=== PATIENT | female | born 1975 | race Caucasian/White ===

== ENCOUNTER 2018-07-12 16:33 | Observation (INO) ==
[2018-07-12] MEDS ORDERED: Ipratropium/Albuterol Neb 3 ML IH ONE (16:35)
[2018-07-12] MEDS ORDERED: methylPREDNISolone 125 MG/2 ML VIAL IVP ONE (16:35)
[2018-07-12 17:02] LABS: Basophils % 0.5 %; Eosinophils # 0.2 K/mcL (0.0-0.6); Hematocrit 38.4 % (35.3-44.9); Hemoglobin 11.8 g/dL (11.5-15.4); Immature Granulocytes % 1.2 % (0-4); Lymphocytes # 2.1 K/mcL (0.6-4.6); Lymphocytes % 27.7 %; Mean Corpuscular HGB Conc 30.7 g/dL (31.6-35.5); Mean Corpuscular Hemoglobin 29.2 pg (28.0-33.3); Mean Platelet Volume 10.3 fL (9.4-12.4); Monocytes # 0.7 K/mcL (0.0-1.3); Monocytes % 9.1 %; Neutrophils # 4.4 K/mcL (1.6-8.9); Platelet Count 182 K/mcL (140-400); Red Blood Count 4.04 M/mcL (3.82-4.97); Red Cell Distribution Width 14.8 % (11.5-14.5); Segmented Neutrophils % 59.5 %
[2018-07-12 17:23] LABS: BUN/Creatinine Ratio 7 (6-26); Blood Urea Nitrogen 6 mg/dL (6-20); Carbon Dioxide 28 mEq/L (23-29); Chloride 102 mEq/L (98-107); Glucose 100 mg/dL (70-105); Osmolality,Calculated 288 (280-300); Potassium 3.2 mEq/L (3.5-5.1); Sodium 140 mEq/L (136-145); eGFR For Non-African Americans > 60 (> 60)
[2018-07-12 17:24] LABS: Troponin I < 0.03 ng/mL (< 0.04)
--- NOTE | 2018-07-12 17:33 | Emergency Department Note ---
Disposition Clinical Impression: COPD exacerbation Pneumonia Qualifiers: Pneumonia type: due to unspecified organism Laterality: unspecified laterality Lung location: unspecified part of lung Qualified Code(s): J18.9 - Pneumonia, unspecified organism Disposition: Admitted As Inpatient Condition: Fair Referrals: NONE,PCP [Primary Care Provider] - Forms: ED Satisfaction Letter Time of Disposition: 18:08 General Adult HPI - General Chief complaint: ED Shortness of Breath/Dyspnea Stated complaint: JAYNE Time Seen by Provider: 07/12/18 16:34 Source: patient Mode of arrival: ambulatory Limitations: no limitations Nursing Notes Reviewed: Yes Vital Signs Reviewed: Yes - History of Present Illness HPI Narrative: Patient is a 42-year-old female that presents emergency Department with increased shortness of breath. Patient states that this is been ongoing for the past 24-48 hours. Patient states that is progressively getting worse. Patient states that she has had a cough with production of greenish sputum patient denies any fevers or chills. Patient states that she does not think that she has a history of COPD or congestive heart failure. Patient states that she does have chronic swelling in bilateral lower extremities this is actually improved from her baseline. Patient denies any chest pain. Patient states that she just felt like she was having a more difficult time getting air. Pain Scale: 0 - Related Data Previous Rx's Medication Instructions Recorded predniSONE [PredniSONE] 40 mg PO BIDWM 3 Days #6 tablet 09/15/17 Albuterol Sulfate [Albuterol 1 puff IH Q4HR #1 inhaler 03/09/18 Inhaler] predniSONE [PredniSONE] 60 mg PO DAILY #15 tablet 03/09/18 Ipratropium/Albuterol Neb [Duoneb] 3 ml IH Q6HR PRN #30 vial.neb 03/10/18 Lidocaine Patch [Lidoderm 5% patch] 1 each TP DAILY PRN #10 adh..patch 03/10/18 Albuterol Sulfate [Albuterol 1 puff IH Q4HR #1 inhaler 06/15/18 Inhaler] methylPREDNISolone [Medrol] 1 each PO DAILY #1 pack 06/15/18 Allergies Allergy/AdvReac Type Severity Reaction Status Date / Time No Known Allergies Allergy Verified 09/14/17 23:19 All systems ED: reviewed and negative except as stated. Constitutional: Denies: fever Cardiovascular: Denies: chest pain Respiratory: Reports: cough, dyspnea, sputum production Gastrointestinal: Denies: abdominal pain, nausea, vomiting Past Medical History - Past Medical History Medical history: Reports: no medical history Surgical history: Reports: non-contributory Psychiatric history: Reports: no psych history - Social History Smoking Status: Current every day smoker Smokeless Tobacco Status: No Alcohol use: Reports: none Drug use: Reports: opiates, other Physical Exam - General Limitations: no limitations General appearance: alert, in no apparent distress - Head Head exam: atraumatic, normocephalic - Eye Eye exam: Present: normal appearance, EOMI - Neck Neck exam: Present: normal inspection, full ROM, trachea midline - Respiratory Respiratory exam: Present: wheezes (Scattered wheezes ). Absent: respiratory distress - Cardiovascular Cardiovascular exam: Present: regular rate, normal rhythm, normal heart sounds, +S1, +S2 - Abdominal Exam Abdominal exam: Present: soft, Non-Tender, normal bowel sounds - Neurological Exam Neurological exam: Present: alert, oriented X3 - Psychiatric Psychiatric exam: Present: normal affect, normal mood - Skin Skin exam: Present: warm, dry, intact Course Vital Signs Temperature 99.3 F 07/12/18 16:39 Pulse Rate 107 07/12/18 16:39 Respiratory Rate 15 07/12/18 16:39 Blood Pressure 126/65 07/12/18 16:39 O2 Sat by Pulse Oximetry 100 07/12/18 16:39 Temperature 99.3 F 07/12/18 16:58 Pulse Rate 103 07/12/18 16:58 Respiratory Rate 22 07/12/18 16:58 Blood Pressure 105/52 07/12/18 16:58 O2 Sat by Pulse Oximetry 100 07/12/18 16:58 Oxygen Delivery Oxygen Delivery Aerosol Mask Medical Decision Making - [facility] Narrative Medical decision making narrative: Due the patient's into the emergency department with reports of shortness of breath basic laboratory testing, chest x-ray and EKG were obtained. The patient's EKG did not show any acute ischemic changes at this time. Patient did have some mild improvement with breathing treatments. Chest x-ray did show possible evidence of pneumonia and the patient has been coughing up a greenish sputum. We will provide the patient with IV ceftriaxone and azithromycin here in the emergency department. Patient is having desaturations into the upper 80s. Based on the patient having increased work of breathing and possible pneumonia the patient will require admission to the hospital. I called and spoke the admitting hospitalist Dr. Orellana and he has accepted the patient to their service. Patient be admitted to the hospital this time for further evaluation and management. - Medical Records Medical records reviewed: Yes I reviewed the patient's medical records. - Lab Data Lab results reviewed: Yes I reviewed the patient's lab results. Result diagrams: 07/12/18 16:49 07/12/18 16:49 Lab Results 07/12/18 07/12/18 07/12/18 Range/Units 16:49 16:49 16:49 WBC 7.5 (4.3-11.1) K/mcL RBC 4.04 (3.82-4.97) M/mcL Hgb 11.8 (11.5-15.4) g/dL Hct 38.4 (35.3-44.9) % MCV 95.0 (83.0-100.0) fL MCH 29.2 (28.0-33.3) pg MCHC 30.7 L (31.6-35.5) g/dL RDW 14.8 H (11.5-14.5) % Plt Count 182 (140-400) K/mcL MPV 10.3 (9.4-12.4) fL Immature Gran % 1.2 (0-4) % Seg Neutrophils % 59.5 % Lymphocytes % 27.7 % Monocytes % 9.1 % Eosinophils % 2.0 % Basophils % 0.5 % Neutrophils # 4.4 (1.6-8.9) K/mcL Lymphocytes # 2.1 (0.6-4.6) K/mcL Monocytes # 0.7 (0.0-1.3) K/mcL Eosinophils # 0.2 (0.0-0.6) K/mcL Basophils # 0.0 (0.0-0.2) K/mcL Sodium 140 (136-145) mEq/L Potassium 3.2 L (3.5-5.1) mEq/L Chloride 102 (98-107) mEq/L Carbon Dioxide 28 (23-29) mEq/L BUN 6 (6-20) mg/dL Creatinine 0.85 (0.60-1.20) mg/dL Est GFR ( Amer) > 60 (> 60) Est GFR (Non-Af Amer) > 60 (> 60) BUN/Creatinine Ratio 7 (6-26) Glucose 100 (70-105) mg/dL Calculated Osmolality 288 (280-300) Lactic Acid 0.9 (0.5-2.2) mmol/L Calcium 9.0 (8.6-10.3) mg/dL Troponin I < 0.03 (< 0.04) ng/mL B-Natriuretic Peptide (Less than 100) pg/mL 07/12/18 Range/Units 16:49 WBC (4.3-11.1) K/mcL RBC (3.82-4.97) M/mcL Hgb (11.5-15.4) g/dL Hct (35.3-44.9) % MCV (83.0-100.0) fL MCH (28.0-33.3) pg MCHC (31.6-35.5) g/dL RDW (11.5-14.5) % Plt Count (140-400) K/mcL MPV (9.4-12.4) fL Immature Gran % (0-4) % Seg Neutrophils % % Lymphocytes % % Monocytes % % Eosinophils % % Basophils % % Neutrophils # (1.6-8.9) K/mcL Lymphocytes # (0.6-4.6) K/mcL Monocytes # (0.0-1.3) K/mcL Eosinophils # (0.0-0.6) K/mcL Basophils # (0.0-0.2) K/mcL Sodium (136-145) mEq/L Potassium (3.5-5.1) mEq/L Chloride (98-107) mEq/L Carbon Dioxide (23-29) mEq/L BUN (6-20) mg/dL Creatinine (0.60-1.20) mg/dL Est GFR ( Amer) (> 60) Est GFR (Non-Af Amer) (> 60) BUN/Creatinine Ratio (6-26) Glucose (70-105) mg/dL Calculated Osmolality (280-300) Lactic Acid (0.5-2.2) mmol/L Calcium (8.6-10.3) mg/dL Troponin I (< 0.04) ng/mL B-Natriuretic Peptide 29 (Less than 100) pg/mL - Radiology Data Radiology results reviewed: Yes I reviewed the patient's radiology results. Chest X-Ray 07/12/18 16:35 IMPRESSION: Patchy opacity in the right lung base which may related to the low lung volumes and atelectasis. Pneumonia cannot be excluded. Consider dedicated two view chest x-ray if the patient is able. D/ / Kait Corcoran MD / Kait Corcoran MD Interpreting Provider: Kait Corcoran MD - EKG Data EKG #1 EKG attestation: Yes I reviewed and interpreted this EKG. EKG results narrative: Patient's EKG shows a sinus tachycardia at a rate of 190 bpm, HI interval 146, qrs duration 97, QTc of 496. There is no evidence of STEMI on EKG.
[2018-07-12] MEDS ORDERED: Azithromycin 500 MG in D5% in Water 250 ML IVPB ONE (17:41)
[2018-07-12] MEDS ORDERED: cefTRIAXone 1,000 MG in Water for inj. (sterile) 20 ML 10 ML IVP ONE (17:41)
--- NOTE | 2018-07-12 17:58 | Emergency Department Note ---
Disposition Clinical Impression: COPD exacerbation Pneumonia Qualifiers: Pneumonia type: due to unspecified organism Laterality: unspecified laterality Lung location: unspecified part of lung Qualified Code(s): J18.9 - Pneumonia, unspecified organism Disposition: Admitted As Inpatient Forms: ED Satisfaction Letter General Adult HPI - General Chief complaint: ED Shortness of Breath/Dyspnea Stated complaint: JAYNE Time Seen by Provider: 07/12/18 16:34 Source: patient Mode of arrival: ambulatory Limitations: no limitations - History of Present Illness Pain Scale: 0 - Related Data Previous Rx's Medication Instructions Recorded predniSONE [PredniSONE] 40 mg PO BIDWM 3 Days #6 tablet 09/15/17 Albuterol Sulfate [Albuterol 1 puff IH Q4HR #1 inhaler 03/09/18 Inhaler] predniSONE [PredniSONE] 60 mg PO DAILY #15 tablet 03/09/18 Ipratropium/Albuterol Neb [Duoneb] 3 ml IH Q6HR PRN #30 vial.neb 03/10/18 Lidocaine Patch [Lidoderm 5% patch] 1 each TP DAILY PRN #10 adh..patch 03/10/18 Albuterol Sulfate [Albuterol 1 puff IH Q4HR #1 inhaler 06/15/18 Inhaler] methylPREDNISolone [Medrol] 1 each PO DAILY #1 pack 06/15/18 Allergies Allergy/AdvReac Type Severity Reaction Status Date / Time No Known Allergies Allergy Verified 09/14/17 23:19 Constitutional: Denies: fever Cardiovascular: Denies: chest pain Respiratory: Reports: cough, dyspnea, sputum production Gastrointestinal: Denies: abdominal pain, nausea, vomiting Past Medical History - Past Medical History Medical history: Reports: no medical history Surgical history: Reports: non-contributory Psychiatric history: Reports: no psych history - Social History Smoking Status: Current every day smoker Smokeless Tobacco Status: No Alcohol use: Reports: none Drug use: Reports: opiates, other Physical Exam - General Limitations: no limitations General appearance: alert, in no apparent distress Course Vital Signs Temperature 99.3 F 07/12/18 16:39 Pulse Rate 107 07/12/18 16:39 Respiratory Rate 15 07/12/18 16:39 Blood Pressure 126/65 07/12/18 16:39 O2 Sat by Pulse Oximetry 100 07/12/18 16:39 Temperature 99.3 F 07/12/18 16:58 Pulse Rate 103 07/12/18 16:58 Respiratory Rate 22 07/12/18 16:58 Blood Pressure 105/52 07/12/18 16:58 O2 Sat by Pulse Oximetry 100 07/12/18 16:58 Oxygen Delivery Oxygen Delivery Aerosol Mask Medical Decision Making - Lab Data Result diagrams: 07/12/18 16:49 07/12/18 16:49 Lab Results 07/12/18 07/12/18 07/12/18 Range/Units 16:49 16:49 16:49 WBC 7.5 (4.3-11.1) K/mcL RBC 4.04 (3.82-4.97) M/mcL Hgb 11.8 (11.5-15.4) g/dL Hct 38.4 (35.3-44.9) % MCV 95.0 (83.0-100.0) fL MCH 29.2 (28.0-33.3) pg MCHC 30.7 L (31.6-35.5) g/dL RDW 14.8 H (11.5-14.5) % Plt Count 182 (140-400) K/mcL MPV 10.3 (9.4-12.4) fL Immature Gran % 1.2 (0-4) % Seg Neutrophils % 59.5 % Lymphocytes % 27.7 % Monocytes % 9.1 % Eosinophils % 2.0 % Basophils % 0.5 % Neutrophils # 4.4 (1.6-8.9) K/mcL Lymphocytes # 2.1 (0.6-4.6) K/mcL Monocytes # 0.7 (0.0-1.3) K/mcL Eosinophils # 0.2 (0.0-0.6) K/mcL Basophils # 0.0 (0.0-0.2) K/mcL Sodium 140 (136-145) mEq/L Potassium 3.2 L (3.5-5.1) mEq/L Chloride 102 (98-107) mEq/L Carbon Dioxide 28 (23-29) mEq/L BUN 6 (6-20) mg/dL Creatinine 0.85 (0.60-1.20) mg/dL Est GFR ( Amer) > 60 (> 60) Est GFR (Non-Af Amer) > 60 (> 60) BUN/Creatinine Ratio 7 (6-26) Glucose 100 (70-105) mg/dL Calculated Osmolality 288 (280-300) Lactic Acid 0.9 (0.5-2.2) mmol/L Calcium 9.0 (8.6-10.3) mg/dL Troponin I < 0.03 (< 0.04) ng/mL B-Natriuretic Peptide (Less than 100) pg/mL 07/12/18 Range/Units 16:49 WBC (4.3-11.1) K/mcL RBC (3.82-4.97) M/mcL Hgb (11.5-15.4) g/dL Hct (35.3-44.9) % MCV (83.0-100.0) fL MCH (28.0-33.3) pg MCHC (31.6-35.5) g/dL RDW (11.5-14.5) % Plt Count (140-400) K/mcL MPV (9.4-12.4) fL Immature Gran % (0-4) % Seg Neutrophils % % Lymphocytes % % Monocytes % % Eosinophils % % Basophils % % Neutrophils # (1.6-8.9) K/mcL Lymphocytes # (0.6-4.6) K/mcL Monocytes # (0.0-1.3) K/mcL Eosinophils # (0.0-0.6) K/mcL Basophils # (0.0-0.2) K/mcL Sodium (136-145) mEq/L Potassium (3.5-5.1) mEq/L Chloride (98-107) mEq/L Carbon Dioxide (23-29) mEq/L BUN (6-20) mg/dL Creatinine (0.60-1.20) mg/dL Est GFR ( Amer) (> 60) Est GFR (Non-Af Amer) (> 60) BUN/Creatinine Ratio (6-26) Glucose (70-105) mg/dL Calculated Osmolality (280-300) Lactic Acid (0.5-2.2) mmol/L Calcium (8.6-10.3) mg/dL Troponin I (< 0.04) ng/mL B-Natriuretic Peptide 29 (Less than 100) pg/mL Attestation Statement - Attestation Attestation: I examined this patient and my medical decision-making was reviewed with the Resident Physician. I agree with the documented findings, disposition and treatment plan as described except to the extent set forth below. 42 year old female presents to the ED with complaints of JAYNE ad the XR has possible pnuemoina. She ambulated without dropping her oxygen level below 94% and does not wear oxygen at home. We will offer patinet adimssion if she needs more pulmonar toilet.
[2018-07-12] MEDS ORDERED: 0.9 % Sodium Chloride 1,000 ML IVC ONE (18:04)
--- NOTE | 2018-07-12 18:29 | Internal Med History&Physical ---
Date of Encounter: 07/12/18 Time of Encounter: 18:29 Internal Medicine - H&P: HPI History of present illness: Ms. Crandall is a 42 year old female with history of tobacco abuse and suspected asthma or COPD presented for SOB that started last night. Patient denies fevers/chills. She is having cough with green sputum. She was recently on antibiotics 10 days ago by primary care provider for cellulitis which she denies any acute issues with. She is a current smoker and states that she was told she might have asthma or COPD. In the ED she had acute desaturation of oxygen to 94% with ambulating. A chest x-ray showed possible pneumonia. She was tachycardic with HR 107 bpm and did have RR 15-22 breaths per minute. Labs were unremarkable. Past Med Surg Social Fam HX - Past Medical History Medical history: no medical history Psychiatric history: no psych history - Past Surgical History Surgical History: non-contributory - Social History Smoking Status: Current every day smoker Smokeless Tobacco Status: No Alcohol use: none Drug use: opiates, other Internal Medicine - H&P: Meds predniSONE [PredniSONE] 40 mg PO BIDWM 3 Days #6 tablet 09/15/17 [Rx] Albuterol Sulfate [Albuterol Inhaler] 1 puff IH Q4HR #1 inhaler 03/09/18 [Rx] predniSONE [PredniSONE] 60 mg PO DAILY #15 tablet 03/09/18 [Rx] Ipratropium/Albuterol Neb [Duoneb] 3 ml IH Q6HR PRN #30 vial.neb 03/10/18 [Rx] Lidocaine Patch [Lidoderm 5% patch] 1 each TP DAILY PRN #10 adh..patch 03/10/18 [Rx] Albuterol Sulfate [Albuterol Inhaler] 1 puff IH Q4HR #1 inhaler 06/15/18 [Rx] methylPREDNISolone [Medrol] 1 each PO DAILY #1 pack 06/15/18 [Rx] Allergy/AdvReac Type Severity Reaction Status Date / Time No Known Allergies Allergy Verified 09/14/17 23:19 All Systems PM: A 10-system review of systems was performed and is negative for pertinent findings except as documented above in the HPI. - Constitutional Vitals: Temp Pulse Resp BP Pulse Ox 99.3 F 90 22 122/73 99 07/12/18 16:58 07/12/18 18:21 07/12/18 16:58 07/12/18 18:21 07/12/18 18:21 General appearance: Present: A&O X 3, morbidly obese Exam: . - Head Head exam: Present: atraumatic, normocephalic - Eye Eye exam: Present: PERRL, conjuntiva pink, sclera anicteric Pupils: Present: PERRL - Neck Neck exam general surgery: Present: supple, trachea midline. Absent: lymphadenopathy - Respiratory Respiratory exam: Present: decreased breath sounds, wheezes. Absent: accessory muscle use, rales, rhonchi - Cardiovascular Cardiovascular exam: Present: RRR, +S1, +S2. Absent: diastolic murmur, gallop, rubs, systolic murmur - GI/Abdominal GI/Abdominal exam: Present: normal bowel sounds, soft, no peritoneal signs. Absent: distended, tenderness - Extremities Exam Extremities exam: Present: pedal edema (2+ bipedal (patient states this is better than usual)), warm, radial pulses palpable and symmetrical. Absent: calf tenderness, cyanotic - Neurological Exam Neurological exam: Present: CN II-XII intact, oriented X3, no focal deficits. Absent: pronater drift, facial droop, speech deficit - Skin Skin exam: Present: dry, intact Internal Med - H&P Results - Labs CBC & Chem 7: 07/12/18 16:49 07/12/18 16:49 Labs: Short CBC 07/12/18 Range/Units 16:49 WBC 7.5 (4.3-11.1) K/mcL Hgb 11.8 (11.5-15.4) g/dL Hct 38.4 (35.3-44.9) % Plt Count 182 (140-400) K/mcL Neutrophils # 4.4 (1.6-8.9) K/mcL BMP 07/12/18 16:49 Sodium 140 Potassium 3.2 L Chloride 102 Carbon Dioxide 28 BUN 6 Creatinine 0.85 Glucose 100 Calcium 9.0 Cardiac Enzymes 07/12/18 Range/Units 16:49 Troponin I < 0.03 (< 0.04) ng/mL - Impressions ITS Impressions Chest X-Ray 07/12/18 16:35 IMPRESSION: Patchy opacity in the right lung base which may related to the low lung volumes and atelectasis. Pneumonia cannot be excluded. Consider dedicated two view chest x-ray if the patient is able. D/ / Kait Corcoran MD / Kait Corcoran MD Interpreting Provider: Kait Corcoran MD - Assessment and plan (1) Pneumonia Current Visit: Yes Status: Acute Assessment and plan: Patient has opacity in right lung base likely pneumonia. WBC normal. Patient does meet SIRS criteria for tachycardia, tachypnea, but clinically looks non-toxic, and in no acute distress. Because meeting SIRS criteria, will obtain LA and obtain blood cultures. Continue Rocephin/Azithromycin. Qualifiers: Pneumonia type: due to unspecified organism Laterality: unspecified laterality Lung location: unspecified part of lung Qualified Code(s): J18.9 - Pneumonia, unspecified organism (2) SIRS (systemic inflammatory response syndrome) Current Visit: Yes Status: Acute Assessment and plan: as above (3) COPD exacerbation Current Visit: Yes Status: Acute Assessment and plan: Patient likely with undiagnosed COPD. Given Solu Medrol in ED. Will continue with Duo Neb schedule. - Time Spent With Patient Total time spent is greater than 50% in coordination of care (as documented) at patient's floor/unit and/or counseling patient:
[2018-07-12] MEDS ORDERED: Naloxone 0.4 MG/ML INJ IVP PRN (18:34)
[2018-07-12] MEDS: Ipratropium/Albuterol Neb 3 ML IH SCH (22:46)
[2018-07-13] MEDS: Ipratropium/Albuterol Neb 3 ML IH SCH ×2 (03:06→08:39)
[2018-07-13 04:55] LABS: Basophils % 0.2 %; Hematocrit 35.7 % (35.3-44.9); Hemoglobin 11.2 g/dL (11.5-15.4); Immature Granulocytes % 1.2 % (0-4); Lymphocytes # 0.6 K/mcL (0.6-4.6); Lymphocytes % 9.8 %; Mean Corpuscular HGB Conc 31.4 g/dL (31.6-35.5); Mean Corpuscular Hemoglobin 29.2 pg (28.0-33.3); Mean Corpuscular Volume 93.2 fL (83.0-100.0); Mean Platelet Volume 10.6 fL (9.4-12.4); Monocytes # 0.2 K/mcL (0.0-1.3); Monocytes % 2.8 %; Neutrophils # 4.9 K/mcL (1.6-8.9); Platelet Count 189 K/mcL (140-400); Red Blood Count 3.83 M/mcL (3.82-4.97); Red Cell Distribution Width 14.7 % (11.5-14.5)
[2018-07-13 05:18] LABS: BUN/Creatinine Ratio 9 (6-26); Blood Urea Nitrogen 7 mg/dL (6-20); Calcium 9.1 mg/dL (8.6-10.3); Carbon Dioxide 31 mEq/L (23-29); Chloride 102 mEq/L (98-107); Glucose 139 mg/dL (70-105); Osmolality,Calculated 290 (280-300); Potassium 4.2 mEq/L (3.5-5.1); Sodium 140 mEq/L (136-145); eGFR For Non-African Americans > 60 (> 60)
[2018-07-13] MEDS: *HR* Heparin 5,000 UNIT/ML VIAL SQ SCH ×2 (06:19→17:55)
[2018-07-13] MEDS ORDERED: predniSONE 20 MG TABLET PO SCH (09:00)
[2018-07-13] MEDS: MethylPREDNISolone 40 MG/ML VIAL IVP SCH ×2 (09:37→21:40)
[2018-07-13] MEDS: *HR* Methadone 10 MG TABLET PO SCH (09:37)
[2018-07-13] MEDS: Levalbuterol Neb 0.63 MG/3 ML IH SCH ×3 (10:35→23:34)
[2018-07-13 10:36] LABS: Estimated Average Glucose 117 mg/dl; Hemoglobin A1C 5.7 %
[2018-07-13] MEDS: *HR* LORazepam 0.5 MG TABLET PO PRN ×2 (11:40→21:39)
--- NOTE | 2018-07-13 11:57 | Internal Med Progress Note ---
Hospitalist Progress Note - Encounter Date of Encounter: 07/13/18 Time of Encounter: 08:00 - Subjective Interval History: patient was seen and examined at bedside. Reports that she is unable to cough up sputum and is inquiring about medications to help her. She reports that her breathing has improved mildly however she still hears herself wheezing. She denies any recent medications, is not taking any medications at home. Denies fever, chills, nausea, vomiting, diarrhea. Denies chest pain or palpitation - Exam Vitals: Temp Pulse Resp BP Pulse Ox 98.8 F 77 16 119/57 99 07/13/18 07:42 07/13/18 07:42 07/13/18 10:35 07/13/18 07:42 07/13/18 10:35 Exam: General: Patient is alert, oriented, no acute distress, morbidly obese, speaks in full sentences Head: atraumatic, normocephalic, Eye: normal appearance, PERRL, no scleral icterus, no conjunctival injection ENT: mucous membranes moist, normal external ear exam, no oral ulcers visible, nontender buccals Neck: normal inspection, trachea midline, full ROM, no carotid bruits, no stridor or drooling Chest: normal inspection, symmetric chest rise Respiratory: Good respiratory effort. Decreased breath sounds bilaterally secondary to body habitus, wheezing in the anterior chest Cardiovascular: Tachycardic s1 and s2 No clicks, rubs, gallops, or murmors. Abdomen: Bowel sounds present normoactive x-4 quadrants. Abdomen is soft, nondistended. no Epigastric tenderness. No guarding or rebound. No organom egaly noted, obese musculoskeletal: Spontaneously moving all extremities. no edema, no calf tenderness Skin: warm, dry, intact. Neuro: Alert and oriented x4. No focal deficit Psych: Patient's affect is normal . - Assessment and Plan (1) Pneumonia Current Visit: Yes Status: Acute Assessment and Plan: Patient has opacity in right lung base likely pneumonia. Was started on ceftriaxone and ZithromaxZithromax was discontinued as urine antigens are negative We will send influenza Follow sputum cultures Blood cultures no growth to date CXR: IMPRESSION: Patchy opacity in the right lung base which may related to the low lung volumes and atelectasis. Pneumonia cannot be excluded. Consider dedicated two view chest x-ray if the patient is able. (2) COPD exacerbation Current Visit: Yes Status: Acute Assessment and Plan: Patient with wheezing in anterior chest most likely secondary to above Started on IV steroids- will taper On antibiotics as per above Duo nebs every 4 hours standing and xopenex Q6 hours when necessary Oxygen via nasal cannula to keep sats above 90 (3) Abnormal CAT scan Current Visit: Yes Status: Acute Assessment and Plan: ulcerative lesion extending into subcut tissues over left parotid ENT Consulted will follow recommendations CT neck: IMPRESSION: 1. No etiology to explain the patient's glomus sensation. 2. Ulcerative skin lesion extending into the subcutaneous soft tissues overlying the left parotid gland measuring 2.1 x 0.6 x 1.9 cm. Physical exam correlation is recommended as a skin malignancy could have this appearance. 3. Perforated nasal septum. (4) Sepsis Current Visit: Yes Status: Acute Assessment and Plan: tachycardia, tachypnea on admission secondary to above management as per above (5) Morbidly obese Current Visit: Yes Status: Acute Assessment and Plan: was counseled (6) Tobacco use Current Visit: Yes Status: Acute Assessment and Plan: was counseled extensively (7) Drug use disorder Current Visit: Yes Status: Acute Assessment and Plan: on methadone- dose verified by pharmacist was counseled (8) DVT prophylaxis Current Visit: Yes Status: Acute Assessment and Plan: heparin sc - Time Spent with Patient Total time spent is greater than 50% in coordination of care (as documented) at patient's floor/unit and/or counseling patient: Internal Medicine: Result - Labs CBC & Chem 7: 07/13/18 03:50 07/13/18 03:50 Labs: Short CBC 07/12/18 07/13/18 Range/Units 16:49 03:50 WBC 7.5 5.7 (4.3-11.1) K/mcL Hgb 11.8 11.2 L (11.5-15.4) g/dL Hct 38.4 35.7 (35.3-44.9) % Plt Count 182 189 (140-400) K/mcL Neutrophils # 4.4 4.9 (1.6-8.9) K/mcL BMP 07/12/18 07/13/18 16:49 03:50 Sodium 140 140 Potassium 3.2 L 4.2 D Chloride 102 102 Carbon Dioxide 28 31 H BUN 6 7 Creatinine 0.85 0.79 Glucose 100 139 H Calcium 9.0 9.1 Cardiac Enzymes 07/12/18 Range/Units 16:49 Troponin I < 0.03 (< 0.04) ng/mL - Impressions Impressions Chest X-Ray 07/12/18 16:35 IMPRESSION: Patchy opacity in the right lung base which may related to the low lung volumes and atelectasis. Pneumonia cannot be excluded. Consider dedicated two view chest x-ray if the patient is able. D/ / Kait Corcoran MD / Kait Corcoran MD Interpreting Provider: Kait Corcoran MD Soft Tissue Neck CT 07/13/18 09:33 IMPRESSION: 1. No etiology to explain the patient's glomus sensation. 2. Ulcerative skin lesion extending into the subcutaneous soft tissues overlying the left parotid gland measuring 2.1 x 0.6 x 1.9 cm. Physical exam correlation is recommended as a skin malignancy could have this appearance. 3. Perforated nasal septum. D/ / 07/13/2018 11:02:28 Ed Lance MD / adrienne Interpreting Provider: Ed Lance MD Consult Discharge Plan - Plan Referrals: NONE,PCP [Primary Care Provider] - (1) Pneumonia Qualifiers: Pneumonia type: due to unspecified organism Laterality: right Lung location: lower lobe of lung Qualified Code(s): J18.1 - Lobar pneumonia, unspecified organism (4) Sepsis Qualifiers: Sepsis type: sepsis due to unspecified organism Qualified Code(s): A41.9 - Sepsis, unspecified organism
[2018-07-13] MEDS ORDERED: Saline Nasal Spray 44 ML BOTTLE NS PRN (12:45)
--- NOTE | 2018-07-13 13:25 | ENT - Consult Note ---
Date of Encounter: 07/13/18 Time of Encounter: 12:00 Assessment and Plan (1) Skin lesion Current Visit: Yes Status: Acute Patient seen and examined at bedside today. Superficial skin lesion approximately 1 x 1 cm in size noted to left jaw area overlying left parotid gland. Area is noted to have a core and is without suspicious features. Area likely cyst. This is superficial and does not extend into the parotid gland itself. CT scan imaging was reviewed in detail with Dr. Bruno ENT physician. No further intervention is warranted at this time. Patient may follow up in outpatient ENT office for consult for removal of lesion. ENT is signing off. (2) Hoarseness Current Visit: Yes Status: Acute Patient with reports of worsening hoarseness. Nasolaryngoscopy was performed today at bedside which demonstrated no masses, lesions, or polyps. See procedure note.. Patient was found to have powder residue noted throughout her bilateral Nare, nasopharynx, pharynx and into the larynx. Patient's mucosa also noted to be very dry throughout. Recommend nasal saline rinses to aid in decreasing nasal dryness and removing crusting and powder residue from bilateral knee nare. No other further intervention recommended at this time. ENT signing off. All questions answered. History of Present Illness Consult date: 07/13/18 Reason for ENT Consult: other (facial lesion ) History of present illness: Patient is a 42-year-old female with past medical history of COPD, tobacco abuse, and substance abuse, currently on methadone treatment. Patient is currently admitted for COPD exacerbation and pneumonia. She was found to have increasing shortness of breath and hoarseness this a.m. and CT soft tissue of the neck was ordered which demonstrated a skin lesion overlying the left parotid gland, for which ENT was consulted for. Patient reports lesion of the left jaw area has been present for several months with multiple attempts to drain the area in the emergency department at previous visits. She denies any current pain, swelling, or drainage from the site at this time. Patient admits to chronic hoarseness with shortness of breath, worsening over the past week. Patient is currently a daily 1 pk/day smoker and has smoked for >20 years. Patient denies any blood-tinged sputum, symptoms of dysphagia, or odynophagia, although she does admit to globus sensation. Patient also admits to increased postnasal draining which has been present for approximately one week. Patient also admits to snorting pills for recreational drug use, and reports she last performed this behavior approximately 24 hours ago. Past Med Surg Social Fam HX - Past Medical History Medical history: no medical history Psychiatric history: no psych history - Past Surgical History Surgical History: non-contributory - Social History Smoking Status: Current every day smoker Packs per day: 1.5 Smokeless Tobacco Status: No Alcohol use: none Drug use: opiates, other Medications and Allergies Methadone 70 mg PO DAILY 07/12/18 [History] Albuterol Sulfate [Ventolin Hfa] 2 puff IH Q6H PRN 07/13/18 [History] Furosemide [Lasix] 20 mg PO DAILY 07/13/18 [History] Allergy/AdvReac Type Severity Reaction Status Date / Time No Known Allergies Allergy Verified 07/12/18 21:32 ENT - ROS - EENT Nose, mouth and throat: hoarseness, other (left facial lesion) ENT Exam Initial Vital Signs Temp Pulse Resp BP Pulse Ox 99.3 F 107 15 126/65 100 07/12/18 16:39 07/12/18 16:39 07/12/18 16:39 07/12/18 16:39 07/12/18 16:39 - General physical appearance well developed, well nourished, no distress, no pain - Eyes PERRL, normal ocular movement - ENT CN 2-12 grossly intact, Other (Ears: Bilateral EACs clear, TMs normal bilaterally, with no middle ear effusion or infection. Oral: Patient is edentulous upper and lower, no oral lesions noted, palate is normal, tongue is midline, uvula is midline, tonsils are atrophied. Nose: Severe dried green crusting, with powder residue noted to bilateral Nare. Septum is grossly midline with severe crusting bilaterally. ) - Neck no masses, trachea midline, no lymphadectomy - Respiratory normal expansion, normal respiratory effort - Integumentary other (1 x 1 cm superficial lesion noted to left jaw, noted to have dark core, lesion is soft, mobile, and non tender. No edema, erythema, swelling, or drainage of area noted. ) - Neurologic CN 2-12 grossly intact, normal coordination, normal sensation - Musculoskeletal normal gait, normal posture - Psychiatric oriented to time, oriented to person, oriented to place Exam Initial Vital Signs Temp Pulse Resp BP Pulse Ox 99.3 F 107 15 126/65 100 07/12/18 16:39 07/12/18 16:39 07/12/18 16:39 07/12/18 16:39 07/12/18 16:39 Results - Labs 07/13/18 03:50 07/13/18 03:50 Abnormal lab results Hgb 11.2 g/dL (11.5-15.4) L 07/13/18 03:50 MCHC 31.4 g/dL (31.6-35.5) L 07/13/18 03:50 RDW 14.7 % (11.5-14.5) H 07/13/18 03:50 Carbon Dioxide 31 mEq/L (23-29) H 07/13/18 03:50 Glucose 139 mg/dL (70-105) H 07/13/18 03:50 Hemoglobin A1c 5.7 % (-5.6) H 07/13/18 03:50 Diabetes panel 07/12/18 07/13/18 07/13/18 Range/Units 16:49 03:50 03:50 Sodium 140 140 (136-145) mEq/L Potassium 3.2 L 4.2 D (3.5-5.1) mEq/L Chloride 102 102 (98-107) mEq/L Carbon Dioxide 28 31 H (23-29) mEq/L BUN 6 7 (6-20) mg/dL Creatinine 0.85 0.79 (0.60-1.20) mg/dL Glucose 100 139 H (70-105) mg/dL Hemoglobin A1c 5.7 H ( - 5.6) % Calcium 9.0 9.1 (8.6-10.3) mg/dL Calcium panel 07/12/18 07/13/18 Range/Units 16:49 03:50 Calcium 9.0 9.1 (8.6-10.3) mg/dL Pituitary panel 07/12/18 07/13/18 Range/Units 16:49 03:50 Sodium 140 140 (136-145) mEq/L Potassium 3.2 L 4.2 D (3.5-5.1) mEq/L Chloride 102 102 (98-107) mEq/L Carbon Dioxide 28 31 H (23-29) mEq/L BUN 6 7 (6-20) mg/dL Creatinine 0.85 0.79 (0.60-1.20) mg/dL Glucose 100 139 H (70-105) mg/dL Calcium 9.0 9.1 (8.6-10.3) mg/dL Adrenal panel 07/12/18 07/13/18 Range/Units 16:49 03:50 Sodium 140 140 (136-145) mEq/L Potassium 3.2 L 4.2 D (3.5-5.1) mEq/L Chloride 102 102 (98-107) mEq/L Carbon Dioxide 28 31 H (23-29) mEq/L BUN 6 7 (6-20) mg/dL Creatinine 0.85 0.79 (0.60-1.20) mg/dL Glucose 100 139 H (70-105) mg/dL Calcium 9.0 9.1 (8.6-10.3) mg/dL All other labs normal. Consult Discharge Plan - Plan Referrals: NONE,PCP [Primary Care Provider] -
[2018-07-13] MEDS: Furosemide 20 MG TABLET PO SCH (13:29)
[2018-07-13] MEDS: Sodium Chloride for inhalation 15 ML INHSOL IH SCH ×2 (15:23→21:05)
[2018-07-13] MEDS ORDERED: Azithromycin 500 MG in D5% in Water 250 ML IVPB SCH (19:00)
[2018-07-13] MEDS ORDERED: cefTRIAXone 1,000 MG in Water for inj. (sterile) 20 ML 10 ML IVP SCH (19:00)
--- NOTE | 2018-07-13 20:47 | ENT - Procedure Note ---
Date of procedure: 07/13/18 Pre-op diagnosis: hoarseness Post-op diagnosis: same Procedure: Anesthesia: Topically applied 4% lidocaine with 0.05% oxymetazoline in a 50-50 mixture Procedure: Flexible nasolaryngoscopy Procedure in detail: After suitable time for the topically applied 50-50 mixture of 4% topical lidocaine and 1:1000 epinephrine anesthetic to take effect. The flexible nasal laryngoscope was used to examine both sides of the nasal cavity. The left side the nasal cavity appeared more patent and therefore the nasal laryngoscope was inserted through the nasal cavity past the nasopharynx oropharynx of the hypopharynx providing an excellent view the laryngeal structures. Once the exam was completed the scope was removed the patient tolerated the procedure well without complication or incident. Findings: Moderate amount of dried green mucus crusting and white powder residue noted to bilateral nare. Powder residue also noted throughout pharynx and laryngeal structures. Mucosa is dry throughout pharynx and larynx. No masses, lesions, or polyps noted. No mucosal irregularity of the lingual laryngeal surface of the epiglottis, the piriform sinuses, the aryepiglottic folds, the anterior commissure, the posterior commissure, the arytenoid mucosa or the false vocal folds. The true vocal folds display normal excursion during phonation and inhalation. True cords noted to have mild bilateral edema. There are no polyps, nodules seen on the true vocal folds. No evidence of Inter-arytenoid erythema, edema, or pachydermia. -- Anesthesia: topical Surgeon: Caron Chung Was there an dental ceramist assistant present: No Estimated blood loss (cc): 0 Condition: stable
[2018-07-14] MEDS: Levalbuterol Neb 0.63 MG/3 ML IH SCH ×3 (04:01→11:17)
[2018-07-14] MEDS: *HR* Heparin 5,000 UNIT/ML VIAL SQ SCH (05:15)
[2018-07-14 07:37] VITALS: BP 144/84
--- NOTE | 2018-07-14 08:54 | Discharge Summary ---
- NOTES TO OUTPATIENT PROVIDER Notes to Outpatient Provider: ENT for cyst on left parotid, follo with PCP Orders not resulted at time of discharge: Pending orders 07/12/18 18:57 Culture,Blood [BC] Routine Mycoplasma pneumoniae IgG IgM Routine 07/13/18 09:57 Sputum Culture [Culture,Sputum with Gram Stain] [] Routine Date of Encounter: 07/14/18 Time of Encounter: 08:47 - Discharge Diagnosis (1) Pneumonia Priority: Primary Status: Acute Qualifiers: Pneumonia type: due to unspecified organism Laterality: right Lung location: lower lobe of lung Qualified Code(s): J18.1 - Lobar pneumonia, unspecified organism (2) COPD exacerbation Priority: Secondary Status: Acute (3) Abnormal CAT scan Priority: Secondary Status: Acute (4) Sepsis Priority: Secondary Status: Acute Qualifiers: Sepsis type: sepsis due to unspecified organism Qualified Code(s): A41.9 - Sepsis, unspecified organism (5) Morbidly obese Priority: Secondary Status: Acute (6) Tobacco use Priority: Secondary Status: Acute (7) Drug use disorder Priority: Secondary Status: Acute (8) DVT prophylaxis Priority: Secondary Status: Acute Hospital course: Ms. Crandall is a 42 year old female with history of COPD, tobacco use and substance use disorder on methadone presented to the emergency department with increasing shortness of breath. While in the emergency department chest x-ray showed Patchy opacity in the right lung base which may related to the low lung volumes and atelectasis. Pneumonia cannot be excluded. She was started on empiric IV antibiotics. Urine antigens were negative, influenza was negative. She demonstrated hoarseness in addition to the shortness of breath so CT of the neck was performed, results below. ENT was consulted, Nasolaryngoscopy was performed at bedside which demonstrated no masses, lesions, or polyps. Patient was found to have powder residue noted throughout her bilateral Nare, nasopharynx, pharynx and into the larynx. Patient's mucosa also noted to be very dry throughout. Recommend nasal saline rinses to aid in decreasing nasal dryness and removing crusting and powder residue from bilateral knee nare. There is an ulcerative soft tissue lesion overlying the left parotid gland measuring 2.1 x 0.6 x 1.9 cm- ENT recommended outpatient follow-up for removal. Shortness of breath improved with IV steroids and IV antibiotics. Counseled extensively on smoking cessation, abstinence from drugs. She is to follow-up with her primary care doctor and to have A1c followed closely as it was 5.7 on admission. She was counseled extensively on diet, nutrition and exercise and she understands. Discharge discussed with: patient, nurse Time spent discussing smoking cessation with patient: more than 10 minutes - Time Spent with Patient Total time spent providing and/or coordinating discharge services: Less than 30 minutes - Discharge Medications Prescriptions: Cefdinir [Omnicef] 300 mg PO BID 5 Days #10 capsule Doxycycline 100 mg PO BID 5 Days #10 capsule Guaifenesin [Mucus ER] 600 mg PO BID 5 Days #10 tab.er.12h Loratadine [Claritin] 10 mg PO DAILY #30 tablet predniSONE [PredniSONE] 10 mg PO TAPER 7 Days #21 tab Saline Nasal [place] [[place] Nasal [place]] 2 spray NS Q2H PRN #1 bottle PRN Reason: Congestion Home Medications: Methadone 70 mg PO DAILY 07/12/18 [History] Albuterol Sulfate [Ventolin Hfa] 2 puff IH Q6H PRN 07/13/18 [History] Furosemide [Lasix] 20 mg PO DAILY 07/13/18 [History] Cefdinir [Omnicef] 300 mg PO BID 5 Days #10 capsule 07/14/18 [Rx] Doxycycline 100 mg PO BID 5 Days #10 capsule 07/14/18 [Rx] Guaifenesin [Mucus ER] 600 mg PO BID 5 Days #10 tab.er.12h 07/14/18 [Rx] Loratadine [Claritin] 10 mg PO DAILY #30 tablet 07/14/18 [Rx] Saline Nasal [place] [[place] Nasal [place]] 2 spray NS Q2H PRN #1 bottle 07/14/18 [Rx] predniSONE [PredniSONE] 10 mg PO TAPER 7 Days #21 tab 07/14/18 [Rx] Allergies/Adverse Reactions: Allergy/AdvReac Type Severity Reaction Status Date / Time No Known Allergies Allergy Verified 07/12/18 21:32 Date of admission: 07/12/18 20:22 Primary care physician: PCP NONE Consults: 07/13/18 11:55 Consult to ENT [CONS] Routine Consulting Provider: ENT Linda Reason for Consult: mass over lying left parotid Call Completed: Yes - Constitutional Vitals: Temp Pulse Resp BP Pulse Ox 97.4 F L 71 18 144/84 95 07/14/18 07:34 07/14/18 07:34 07/14/18 07:36 07/14/18 07:34 07/14/18 07:36 General appearance: Present: A&O X 3, morbidly obese Exam: General: Patient is alert, oriented, no acute distress, morbidly obese, speaks in full sentences Head: atraumatic, normocephalic, Eye: normal appearance, PERRL, no scleral icterus, no conjunctival injection ENT: mucous membranes moist, normal external ear exam, no oral ulcers visible, nontender buccals, hoarseness of the voice ( improving) Neck: normal inspection, trachea midline, full ROM, no carotid bruits, no stridor or drooling Chest: normal inspection, symmetric chest rise Respiratory: Good respiratory effort. Decreased breath sounds bilaterally secondary to body habitus, no wheezing Cardiovascular: Tachycardic s1 and s2 No clicks, rubs, gallops, or murmors. Abdomen: Bowel sounds present normoactive x-4 quadrants. Abdomen is soft, nondistended. no Epigastric tenderness. No guarding or rebound. No organomegaly noted, obese musculoskeletal: Spontaneously moving all extremities. no edema, no calf tenderness Skin: warm, dry, intact. Neuro: Alert and oriented x4. No focal deficit Psych: Patient's affect is normal . - Patient Status Disposition: Home, Self-Care Condition: Fair Functional capacity at discharge: independent ambulation Overall status at discharge: patient is progressing back to baseline - Discharge Instructions Follow Up With: NONE,PCP [Primary Care Provider] - - Diet and Activity Activity: increase activity as tolerated Diet: advance to your usual diet
[2018-07-14] MEDS ORDERED: Doxycycline 100 MG CAPSULE PO SCH (09:00)
[2018-07-14] MEDS ORDERED: Cefdinir 300 MG CAPSULE PO SCH (09:00)
[2018-07-14] MEDS ORDERED: Loratadine 10 MG TABLET PO SCH (09:00)
[2018-07-14] MEDS: Sodium Chloride for inhalation 15 ML INHSOL IH SCH (09:54)
[2018-07-14] MEDS: Furosemide 20 MG TABLET PO SCH (09:56)
[2018-07-14] MEDS: MethylPREDNISolone 40 MG/ML VIAL IVP SCH (10:00)
[2018-07-14] MEDS: *HR* Methadone 10 MG TABLET PO SCH (10:00)
[2018-07-15 10:52] LABS: Mycoplasma pneumoniae IgG 0.31 U/L (<=0.09)
--- NOTE | 2018-07-15 17:49 | Electrocardiograph Report ---
[address] [address] Test Date: 2018-07-12 Pat Name: Jo-Ann Crandall Department: [id number] Room: 2NE27 Gender: F [employer]: : 1975 Requested By: Susu Foster Order Number: [id number] Reading MD: Eugenia Lemus Measurements Intervals [place] Rate: 109 P: 68 OK: 146 QRS: 56 QRSD: 97 T: 70 QT: 358 QTc: 483 Interpretive Statements Sinus tachycardia RSR' in V1 or V2, right VCD or RVH Nonspecific T abnrm, anterolateral leads Borderline prolonged QT interval Electronically Signed On 07-15-2018 17:48:06 EST by Eugenia Lemus
== END 2018-07-14 13:57 | disposition home or self-care (01) ==
LOC: EMEROOARM 16:33 → 2NENU 20:22 → INTOOBSV 20:22 → 2NENU 21:24
PROVIDERS: ADMIT Student in an Organized Health Care Education/Training Program; ATTEND Student in an Organized Health Care Education/Training Program

== ENCOUNTER 2018-07-21 17:23 | Observation (INO) ==
[2018-07-21] MEDS ORDERED: Ipratropium/Albuterol Neb 3 ML ONE (17:27)
[2018-07-21] MEDS ORDERED: Ipratropium/Albuterol Neb 3 ML IH ONE (17:29)
--- NOTE | 2018-07-21 17:45 | Emergency Department Note ---
Disposition Clinical Impression: Thrush, Foreign body sensation in throat Disposition: Admitted As Inpatient Condition: Good General Adult HPI - General Chief complaint: ED Shortness of Breath/Dyspnea Stated complaint: JAYNE Time Seen by Provider: 07/21/18 17:29 Source: EMS Limitations: no limitations Nursing Notes Reviewed: Yes Vital Signs Reviewed: Yes - History of Present Illness HPI Narrative: 42-year-old female with past medical history including COPD, active tobacco use, presenting with chief complaint of dyspnea and feeling like something is stuck in her throat. Patient presented with similar signs and symptoms 2 days ago and was found to have a mucous plug in her bronchi. She was evaluated by pulmonology and eventually was able to cough up the mucous plug. Just prior to arrival today, the patient felt like she again had another mucous plugging and was unable to cough up. She is feeling anxious and feeling like she is short of breath. In route she received albuterol treatment in EMS without improvement. She denies fevers, chest pain, nausea or vomiting, dysphagia. Pain Scale: 0 - Related Data Home Medications Medication Instructions Recorded Confirmed Methadone 70 mg PO DAILY 07/12/18 07/13/18 Albuterol Sulfate [Ventolin Hfa] 2 puff IH Q6H PRN 07/13/18 07/21/18 Furosemide [Lasix] 20 mg PO DAILY 07/13/18 07/21/18 Guaifenesin [Mucus Relief] 400 mg PO Q4H 07/21/18 07/21/18 Levofloxacin [Levaquin] 750 mg PO DAILY 07/21/18 07/21/18 Previous Rx's Medication Instructions Recorded Loratadine [Claritin] 10 mg PO DAILY #30 tablet 07/14/18 Saline Nasal [place] [[place] Nasal 2 spray NS Q2H PRN #1 bottle 07/14/18 [place]] Allergies Allergy/AdvReac Type Severity Reaction Status Date / Time No Known Allergies Allergy Verified 07/12/18 21:32 All systems ED: reviewed and negative except as stated. Review of Systems: As Per HPI Constitutional: Denies: fever, chills Eyes: Denies: eye pain, eye discharge ENT ED: Denies: ear pain Cardiovascular: Denies: chest pain, palpitations Respiratory: Reports: cough, dyspnea, other (Mucous plug) Gastrointestinal: Denies: abdominal pain, nausea Genitourinary: Denies: urgency, dysuria Musculoskeletal: Denies: back pain, neck pain Integumentary: Denies: rash, abrasion Neurological: Denies: headache, weakness Allergic/Immunologic: Denies: urticaria, itchy eyes Past Medical History - Past Medical History Attestation: Yes The following information was validated with the patient. Source: patient Medical history: Reports: COPD Surgical history: Reports: non-contributory Psychiatric history: Reports: no psych history - Social History Smoking Status: Current every day smoker Smokeless Tobacco Status: No Alcohol use: Reports: none Drug use: Reports: opiates, other Physical Exam - General Limitations: no limitations General appearance: alert, in distress - Head Head exam: atraumatic, normocephalic - Eye Eye exam: Present: normal appearance, EOMI - ENT ENT exam: other (Rash and posterior pharynx below vocal cord. There is no obstruction of posterior pharynx or of vocal cords.) - Neck Neck exam: Present: normal inspection, full ROM, trachea midline - Chest Chest inspection: Present: normal inspection, symmetric chest wall rise - Respiratory Respiratory exam: Present: normal lung sounds bilaterally, other (Tachycardic) - Cardiovascular Cardiovascular exam: Present: regular rate, normal rhythm, normal heart sounds - Abdominal Exam Abdominal exam: Present: soft, Non-Tender. Absent: tenderness, distention, g uarding, rebound, rigidity - Extremities Exam Extremities exam: Present: normal inspection, full ROM. Absent: tenderness, pedal edema - Neurological Exam Neurological exam: Present: alert, oriented X3 - Psychiatric Psychiatric exam: Present: normal affect, normal mood - Skin Skin exam: Present: warm, dry, intact Course Vital Signs Temperature 98.7 F 07/21/18 17:28 Pulse Rate 99 07/21/18 17:28 Respiratory Rate 22 07/21/18 17:28 Blood Pressure 140/85 07/21/18 17:28 O2 Sat by Pulse Oximetry 100 07/21/18 17:28 Temperature 98.7 F 07/21/18 18:07 Pulse Rate 117 07/21/18 18:53 Respiratory Rate 21 07/21/18 18:53 Blood Pressure 141/71 07/21/18 18:53 O2 Sat by Pulse Oximetry 95 07/21/18 18:53 Oxygen Delivery Oxygen Delivery Aerosol Mask Medical Decision Making - [facility] Narrative Medical decision making narrative: Patient is complaining of foreign body sensation in her mid throat. She is oxygenating 100% on room air but is feeling very anxious. Couple days ago she did have a bedside fiberoptic bronchoscopy with pulmonology results showed mucus plugging. With bedside fiberoptic today with visualization of vocal cords, patient had white material on posterior tongue and vocal cords appearing as fungal. No mucus ball noted. She has an patent airway. On continuous saline nebulizer. Chest x-ray. Patient is very anxious so we will give Ativan. We will also check CBC and BMP. Pulmonology was consulted. 1800 Chest x-ray with no visualization of obstruction, no acute cardiopulmonary process. Discussed with Pulmonology. Advised admission and he will do a bronch oscope tomorrow. No IV antifungals at this time. 18:40 Labs reviewed. No electrolyte abnormalities. Hospitalist consulted. By mouth nystatin for suspected thrush. 18:45 Discussed with hospitalist who accepts admission. No further recommendations at this time. Patient remains medically stable. She is sitting up, oxygenating 100% on room air, less anxious. - Medical Records Medical records reviewed: Yes I reviewed the patient's medical records. - Lab Data Result diagrams: 07/21/18 17:41 07/21/18 17:41 Lab Results 07/21/18 07/21/18 Range/Units 17:41 17:41 WBC 10.4 (4.3-11.1) K/mcL RBC 4.36 (3.82-4.97) M/mcL Hgb 12.5 (11.5-15.4) g/dL Hct 40.9 (35.3-44.9) % MCV 93.8 (83.0-100.0) fL MCH 28.7 (28.0-33.3) pg MCHC 30.6 L (31.6-35.5) g/dL RDW 14.6 H (11.5-14.5) % Plt Count 188 (140-400) K/mcL MPV 11.2 (9.4-12.4) fL Sodium 134 L (136-145) mEq/L Potassium 4.0 (3.5-5.1) mEq/L Chloride 98 (98-107) mEq/L Carbon Dioxide 30 H (23-29) mEq/L BUN 10 (6-20) mg/dL Creatinine 0.88 (0.60-1.20) mg/dL Est GFR ( Amer) > 60 (> 60) Est GFR (Non-Af Amer) > 60 (> 60) BUN/Creatinine Ratio 11 (6-26) Glucose 118 H (70-105) mg/dL Calculated Osmolality 278 L (280-300) Calcium 9.6 (8.6-10.3) mg/dL - Radiology Data Radiology results reviewed: Yes I reviewed the patient's radiology results. Chest X-Ray 07/21/18 17:30 IMPRESSION: Normal chest x-ray D/ / Jc Prabhakar MD / Jc Prabhakar MD Interpreting Provider: Jc Prabhakar MD - EKG Data EKG #1 EKG attestation: Yes I reviewed and interpreted this EKG. EKG results narrative: EKG from today at 1818 shows sinus tachycardia with heart rate 116. TX interval 152. QRS duration 94. Again no ST elevation or depression. Compared to prior EKG
[2018-07-21] MEDS ORDERED: *HR* LORazepam 2 MG/ML VIAL IVP ONE (17:49)
[2018-07-21 17:57] LABS: Hematocrit 40.9 % (35.3-44.9); Hemoglobin 12.5 g/dL (11.5-15.4); Mean Corpuscular HGB Conc 30.6 g/dL (31.6-35.5); Mean Corpuscular Hemoglobin 28.7 pg (28.0-33.3); Mean Corpuscular Volume 93.8 fL (83.0-100.0); Mean Platelet Volume 11.2 fL (9.4-12.4); Platelet Count 188 K/mcL (140-400); Red Blood Count 4.36 M/mcL (3.82-4.97); Red Cell Distribution Width 14.6 % (11.5-14.5)
[2018-07-21 18:11] LABS: BUN/Creatinine Ratio 11 (6-26); Blood Urea Nitrogen 10 mg/dL (6-20); Calcium 9.6 mg/dL (8.6-10.3); Carbon Dioxide 30 mEq/L (23-29); Chloride 98 mEq/L (98-107); Glucose 118 mg/dL (70-105); Osmolality,Calculated 278 (280-300); Sodium 134 mEq/L (136-145); eGFR For Non-African Americans > 60 (> 60)
--- NOTE | 2018-07-21 18:21 | Emergency Department Note ---
Disposition Clinical Impression: Thrush, Foreign body sensation in throat Disposition: Admitted As Inpatient Condition: Good General Adult HPI - General Chief complaint: ED Shortness of Breath/Dyspnea Stated complaint: JAYNE Time Seen by Provider: 07/21/18 17:29 Source: EMS Limitations: no limitations - History of Present Illness Pain Scale: 0 - Related Data Home Medications Medication Instructions Recorded Confirmed Methadone 70 mg PO DAILY 07/12/18 07/13/18 Albuterol Sulfate [Ventolin Hfa] 2 puff IH Q6H PRN 07/13/18 07/21/18 Furosemide [Lasix] 20 mg PO DAILY 07/13/18 07/21/18 Guaifenesin [Mucus Relief] 400 mg PO Q4H 07/21/18 07/21/18 Levofloxacin [Levaquin] 750 mg PO DAILY 07/21/18 07/21/18 Previous Rx's Medication Instructions Recorded Loratadine [Claritin] 10 mg PO DAILY #30 tablet 07/14/18 Saline Nasal [place] [[place] Nasal 2 spray NS Q2H PRN #1 bottle 07/14/18 [place]] Allergies Allergy/AdvReac Type Severity Reaction Status Date / Time No Known Allergies Allergy Verified 07/12/18 21:32 Constitutional: Denies: fever, chills Eyes: Denies: eye pain, eye discharge ENT ED: Denies: ear pain Cardiovascular: Denies: chest pain, palpitations Respiratory: Reports: cough, dyspnea, other (Mucous plug) Gastrointestinal: Denies: abdominal pain, nausea Genitourinary: Denies: urgency, dysuria Musculoskeletal: Denies: back pain, neck pain Integumentary: Denies: rash, abrasion Neurological: Denies: headache, weakness Allergic/Immunologic: Denies: urticaria, itchy eyes Past Medical History - Past Medical History Medical history: Reports: COPD Surgical history: Reports: non-contributory Psychiatric history: Reports: no psych history - Social History Smoking Status: Current every day smoker Smokeless Tobacco Status: No Alcohol use: Reports: none Drug use: Reports: opiates, other Physical Exam - General Limitations: no limitations General appearance: alert, in distress Course Vital Signs Temperature 98.7 F 07/21/18 17:28 Pulse Rate 99 07/21/18 17:28 Respiratory Rate 22 07/21/18 17:28 Blood Pressure 140/85 07/21/18 17:28 O2 Sat by Pulse Oximetry 100 07/21/18 17:28 Temperature 98.9 F 07/21/18 20:28 Pulse Rate 91 07/21/18 20:28 Respiratory Rate 16 07/21/18 20:28 Blood Pressure 126/70 07/21/18 20:28 O2 Sat by Pulse Oximetry 96 07/21/18 20:28 Oxygen Delivery Oxygen Delivery Room Air Medical Decision Making - Lab Data Result diagrams: 07/21/18 17:41 07/21/18 17:41 Lab Results 07/21/18 07/21/18 Range/Units 17:41 17:41 WBC 10.4 (4.3-11.1) K/mcL RBC 4.36 (3.82-4.97) M/mcL Hgb 12.5 (11.5-15.4) g/dL Hct 40.9 (35.3-44.9) % MCV 93.8 (83.0-100.0) fL MCH 28.7 (28.0-33.3) pg MCHC 30.6 L (31.6-35.5) g/dL RDW 14.6 H (11.5-14.5) % Plt Count 188 (140-400) K/mcL MPV 11.2 (9.4-12.4) fL Sodium 134 L (136-145) mEq/L Potassium 4.0 (3.5-5.1) mEq/L Chloride 98 (98-107) mEq/L Carbon Dioxide 30 H (23-29) mEq/L BUN 10 (6-20) mg/dL Creatinine 0.88 (0.60-1.20) mg/dL Est GFR ( Amer) > 60 (> 60) Est GFR (Non-Af Amer) > 60 (> 60) BUN/Creatinine Ratio 11 (6-26) Glucose 118 H (70-105) mg/dL Calculated Osmolality 278 L (280-300) Calcium 9.6 (8.6-10.3) mg/dL Attestation Statement - Attestation Attestation: I examined this patient and my medical decision-making was reviewed with the Resident Physician. I agree with the documented findings, disposition and treatment plan as described except to the extent set forth below. Patient presents to the ED with chief complaint of shortness of breath and feeling like something stuck in her chest. Patient seen a couple days ago for the same and was found to have a mucous plug at the level of her vocal cords at that time. On exam she is in no acute distress. She does appear very anxious. Oxygen sat is stable and 98%. Lungs sounds are symmetric and clear with good air exchange. I did supervise is a residence performed a bedside scope. There is white material visualized below the vocal cords. There is also white matter on the posterior aspect of the tongue that appears consistent with candidiasis. She is better after some DuoNeb's in aerosolized saline. I did discuss the patient with Dr. Clement. He is going to perform a bronchoscopy tomorrow. Attentive on her last visit but were unsuccessful secondary to problems with sedation. Chest x-ray is clear. Do not see signs to mucous plugging. She is in no respiratory distress with good air exchange. I believe bronchoscopy tomorrow is appropriate. Do not believe it needs to be done emergently. Admitted to medicine.
[2018-07-21] MEDS: Nystatin SUSP 5 ML UD.LIQ PO SCH ×2 (19:09→22:33)
[2018-07-22] MEDS ORDERED: Naloxone 0.4 MG/ML INJ IVP PRN (00:41)
[2018-07-22] MEDS ORDERED: Albuterol 2.5 MG/3 ML NEBULIZER IH PRN (00:42)
--- NOTE | 2018-07-22 00:47 | Internal Med History&Physical ---
Date of Encounter: 07/22/18 Time of Encounter: 23:40 Internal Medicine - H&P: HPI Chief complaint: Shortness of breath Admitted From: Emergency Dept Plans for Post Hospital Care: Home History of present illness: Ms. Crandall is a 42 year old female Patient presented to the emergency room for shortness of breath and feeling like she has something stuck in her throat. She had similar symptoms 2 days ago in the emergency room and was found to have a mucous plug in her bronchi. Neurology evaluated her at that time and the mucous plug was removed. She has a history of COPD and tobacco use. In the emergency room patient's CBC and BMP were within normal limits. Chest x- ray showed no acute abnormalities. Emergency room discussed case with on-call pulmonology who recommended admission and will likely do bronchoscopy tomorrow. She did have white material on the posterior tongue and vocal cords that appeared to be fungal and she was given a dose of nystatin orally. She was recently admitted to the hospital for pneumonia, and discharged on antibiotics and oral steroids. Upon my evaluation, patient states that the breathing treatments seemed to have helped. She feels less short of breath, but is on nasal cannula oxygen. She does not use oxygen at home. She denies nausea, vomiting, chest pain, abdominal p ain, diarrhea and constipation. She saw her PCP outpatient, and was recently started on Levaquin. She is also continuing her prednisone taper and is nearly finished. Past Med Surg Social Fam HX - Past Medical History Medical history: COPD Psychiatric history: no psych history - Past Surgical History Surgical History: non-contributory - Social History Smoking Status: Current every day smoker Smokeless Tobacco Status: No Alcohol use: none Drug use: opiates, other Internal Medicine - H&P: Meds Methadone 70 mg PO DAILY 07/12/18 [History] Albuterol Sulfate [Ventolin Hfa] 2 puff IH Q6H PRN 07/13/18 [History] Furosemide [Lasix] 20 mg PO DAILY 07/13/18 [History] Loratadine [Claritin] 10 mg PO DAILY #30 tablet 07/14/18 [Rx] Saline Nasal [place] [[place] Nasal [place]] 2 spray NS Q2H PRN #1 bottle 07/14/18 [Rx] Guaifenesin [Mucus Relief] 400 mg PO Q4H 07/21/18 [History] Levofloxacin [Levaquin] 750 mg PO DAILY 07/21/18 [History] Allergy/AdvReac Type Severity Reaction Status Date / Time No Known Allergies Allergy Verified 07/12/18 21:32 All Systems PM: A 10-system review of systems was performed and is negative for pertinent findings except as documented above in the HPI. - Constitutional Vitals: Temp Pulse Resp BP Pulse Ox 97.6 F 92 16 115/71 94 07/21/18 23:37 07/21/18 23:37 07/21/18 23:37 07/21/18 23:37 07/21/18 23:37 General appearance: Present: cooperative, A&O X 3, pleasant, no acute distress, answers questions appropriately Exam: - - Head Head exam: Present: normal inspection - Eye Eye exam: Present: EOMI, normal appearance - Respiratory Respiratory exam: Present: decreased breath sounds. Absent: rales, rhonchi, wheezes - Cardiovascular Cardiovascular exam: Present: RRR. Absent: diastolic murmur, systolic murmur - GI/Abdominal GI/Abdominal exam: Present: normal bowel sounds, soft. Absent: tenderness - Extremities Exam Extremities exam: Present: warm, radial pulses palpable and symmetrical. Absent: calf tenderness, pedal edema, tenderness - Neurological Exam Neurological exam: Present: no focal deficits, strengths equal and symetr throughout. Absent: motor sensory deficit, facial droop, speech deficit - Skin Skin exam: Present: dry, normal color, warm Internal Med - H&P Results - Labs CBC & Chem 7: 07/22/18 05:46 07/22/18 05:46 Labs: Short CBC 07/21/18 Range/Units 17:41 WBC 10.4 (4.3-11.1) K/mcL Hgb 12.5 (11.5-15.4) g/dL Hct 40.9 (35.3-44.9) % Plt Count 188 (140-400) K/mcL BMP 07/21/18 17:41 Sodium 134 L Potassium 4.0 Chloride 98 Carbon Dioxide 30 H BUN 10 Creatinine 0.88 Glucose 118 H Calcium 9.6 - Impressions ITS Impressions Chest X-Ray 07/21/18 17:30 IMPRESSION: Normal chest x-ray D/ / Jc Prabhakar MD / Jc Prabhakar MD Interpreting Provider: Jc Prabhakar MD - Assessment and plan (1) Shortness of breath Current Visit: Yes Status: Acute Assessment and plan: Likely secondary to mucus plugging and possible pneumonia. Recently started on Levaquin by outpatient PCP. Pulmonary consulted from the ER, will see patient in the morning Continue Levaquin Continue oxygen supplementation as needed (2) COPD exacerbation Current Visit: No Status: Acute Assessment and plan: Patient states breathing treatments in the emergency room improved her symptoms. Continue breathing treatments Hold steroids due to oral thrush Oxygen supplementation as needed (3) Mucus plugging of bronchi Current Visit: No Status: Acute Assessment and plan: Pulmonary consult in the morning (4) Thrush Current Visit: Yes Status: Acute Assessment and plan: Nystatin by mouth Hold steroids (5) DVT prophylaxis Current Visit: No Status: Acute Assessment and plan: Subcutaneous heparin - Time Spent With Patient Total time spent is greater than 50% in coordination of care (as documented) at patient's floor/unit and/or counseling patient: Greater than 35 minutes
[2018-07-22] MEDS: Ipratropium/Albuterol Neb 3 ML IH SCH ×2 (05:05→10:50)
[2018-07-22 06:12] LABS: Hematocrit 39.2 % (35.3-44.9); Hemoglobin 11.9 g/dL (11.5-15.4); Mean Corpuscular HGB Conc 30.4 g/dL (31.6-35.5); Mean Corpuscular Hemoglobin 29.1 pg (28.0-33.3); Mean Corpuscular Volume 95.8 fL (83.0-100.0); Mean Platelet Volume 11.2 fL (9.4-12.4); Platelet Count 160 K/mcL (140-400); Red Blood Count 4.09 M/mcL (3.82-4.97); Red Cell Distribution Width 14.9 % (11.5-14.5)
[2018-07-22 06:33] LABS: BUN/Creatinine Ratio 10 (6-26); Blood Urea Nitrogen 8 mg/dL (6-20); Calcium 9.4 mg/dL (8.6-10.3); Carbon Dioxide 28 mEq/L (23-29); Chloride 102 mEq/L (98-107); Glucose 77 mg/dL (70-105); Osmolality,Calculated 281 (280-300); Potassium 3.9 mEq/L (3.5-5.1); Sodium 137 mEq/L (136-145); eGFR For Non-African Americans > 60 (> 60)
--- NOTE | 2018-07-22 06:46 | Pulmonology Consult Note ---
Date of Encounter: 07/22/18 Time of Encounter: 06:45 Assessment and Plan (1) Foreign body sensation in throat Current Visit: Yes Status: Acute This is unclear etiologies he is at risk for vocal cord dysfunction and some of her symptoms are suggestive of that this may be related to a thick mucoid secretions which can be seen and uncontrolled asthma I doubt any endobronchial obstruction or tracheal obstruction based upon imaging and direct visualization in the past. Nevertheless this cannot be fully excoriated and recommend direct visualization todayA bronchoscopy is recommended. The procedure , risks, benefits, complications, and expected outcomes have been reviewed. Benefits of diagnosis, as well as risks to include bleeding, infection, pneumothorax which may require surgical intervention, and in a small population. The patient is aware that sometimes test is nondiagnostic. Discussed with patient and agrees to proceed. (2) Thrush Current Visit: Yes Status: Acute This can be further evaluated during bronchoscopy today would likely need fluconazole treatment (3) COPD exacerbation Current Visit: No Status: Acute Based upon mosaic attenuation on her CT scan as well as smoking history and clinical symptoms I have a high suspicion for obstructive airways disease which is probably a combination of both asthma and COPD she currently using nebulized breathing treatments at home which is appropriate would recommend at least a two-week taper of prednisone and then starting of a metered-dose inhaler with a combination inhaled corticosteroid/long-acting beta agonist ideally could be started after treatment for thrush Follow-up in pulmonary clinic for PFTs and optimization of this problem (4) Drug use disorder Current Visit: No Status: Acute Recommend formal social service consultation (5) Morbidly obese Current Visit: No Status: Acute Weight loss encouraged (6) Sleep-disordered breathing Current Visit: Yes Status: Acute High suspicion for obstructive sleep apnea Possible adverse effects of untreated sleep apnea explained including increased risk of stroke, hypertension, headaches, and pulmonary hypertension. Advised not to drive if sleepy as untreated JAMAL can cause motor vehicle accidents. Needs outpatient sleep study (7) Tobacco use Current Visit: No Status: Acute Tobacco abuse counseling given History of Present Illness Consult date: 07/22/18 Requesting physician: Silvana Marie See Reason for consult: other (Airway abnormality ) Chief complaint: Something Stuck in my Throat History of present illness: The patient is 42-year-old woman past medical history of tobacco abuse for last 25 years about a pack a day she is also carried a diagnosis of asthma or COPD she said both. She is an ongoing issue with difficulty with breathing and inability to expectorate mucus feeling like something is stuck in her throat. This is been going on since at least 06/15 hours she had an EGD admission on 1217 had another admission 1223 as well as yesterday. She has had multiple studies to investigate this including a CT angiogram to soft tissue CT scans of her neck x-ray of her neck as well as chest x-rays without any clear underlying process. She was discharged on 1123 from the hospital with the prednisone and antibiotics treated for COPD exacerbation. At that time she had direct visualization of the vocal cords by pulmonary service although the full procedure (bronchoscopy) cannot be completed because of patient agitation there was noted to mucous plug on the vocal cord at that time. She also had direct visualization of her upper airway by ENT and yesterday in the ED the emergency department physician had direct laryngoscopy which was notable for a thrush-like exudate otherwise no abnormality within the upper airway. Complex medical history including chronic substance abuse with snorting of Percocet after crushing the pills. She has a partially perforated septum as a result. No exotic pets exposures. 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 She has been told she snores loudly at night she wakes up with a headache and dry mouth often has daytime hypersomnolence but no accidents related to sleepiness but has never had a formal sleep study in the past Past Med Surg Social Fam HX - Past Medical History Medical history: COPD Psychiatric history: no psych history - Past Surgical History Surgical History: non-contributory - Social History Smoking Status: Current every day smoker Smokeless Tobacco Status: No Alcohol use: none Drug use: opiates, other Medications and Allergies Methadone 70 mg PO DAILY 07/12/18 [History] Albuterol Sulfate [Ventolin Hfa] 2 puff IH Q6H PRN 07/13/18 [History] Furosemide [Lasix] 20 mg PO DAILY 07/13/18 [History] Loratadine [Claritin] 10 mg PO DAILY #30 tablet 07/14/18 [Rx] Saline Nasal [place] [[place] Nasal [place]] 2 spray NS Q2H PRN #1 bottle 07/14/18 [Rx] Guaifenesin [Mucus Relief] 400 mg PO Q4H 07/21/18 [History] Levofloxacin [Levaquin] 750 mg PO DAILY 07/21/18 [History] Allergy/AdvReac Type Severity Reaction Status Date / Time No Known Allergies Allergy Verified 07/12/18 21:32 All Systems: The remainder of the systems were reviewed and are negative Physical Examination Vital Signs: Vital Signs, Last 4 Hours Temp Pulse Resp BP Pulse Ox 07/22/18 05:06 14 97 07/22/18 03:27 98.6 F 77 16 118/76 93 General appearance: no acute distress Eyes: nonicteric ENT: oropharynx moist, oropharyngeal exudate present Mallampati (class): 4 Neck: supple, other (no stridor ) Effort: normal Auscultation: bilateral: clear Cardiovascular: regular rate and rhythm Gastrointestinal: normoactive bowel sounds, soft, non-tender Integumentary: normal Extremities: edema (Trace bilateral dependent nonpitting edema) Musculoskeletal: no deformities normal mental status, non-focal exam mood appropriate Results - Laboratory Findings CBC and BMP: 07/22/18 05:46 07/22/18 05:46 Abnormal lab findings: Abnormal lab results MCHC 30.4 g/dL (31.6-35.5) L 07/22/18 05:46 RDW 14.9 % (11.5-14.5) H 07/22/18 05:46 - Diagnostic Findings Chest x-ray: report reviewed, image reviewed CT scan - chest: report reviewed, image reviewed - Clinical Findings Intake & Output: Intake & Output 07/21/18 07/21/18 07/22/18 15:59 23:59 07:59 Intake Total 360 / 360 0 / 0 Output Total 450 / 450 Balance 360 / 360 -450 / -450 Weight 135.4 kg 135.4 kg Consult Discharge Plan - Plan Referrals: Katy López DO [Partnered Physician] -
[2018-07-22] MEDS: Nystatin SUSP 5 ML UD.LIQ PO SCH ×4 (07:51→21:29)
[2018-07-22] MEDS ORDERED: predniSONE 20 MG TABLET PO SCH (09:00)
[2018-07-22] MEDS ORDERED: levoFLOXacin 750 MG TABLET PO SCH (09:00)
[2018-07-22] MEDS ORDERED: *HR* Propofol 200 MG/20 ML VIAL IVP ONE (10:14)
--- NOTE | 2018-07-22 10:31 | Anesthesia Evaluation PreOp ---
Date of Encounter: 07/22/18 Time of Encounter: 10:29 - Past History Planned Operation: Bronchoscopy Cardiac History: Denies any Significant Hx Pulmonary History: Smoker (25 years), COPD, [employer]ore [employer] History: Denies Any Significant HX Other Medical History: Diabetes Type II (pre-diabetes), Other (obesity BMI=48.2) Anesthesia History: Past Anesthesia (hysteroscopy), Problems (PONV) Test: Negative (07/22/2018) Alcohol Use: none Drug use: opiates, other Medications and Allergies Methadone 70 mg PO DAILY 07/12/18 [History] Albuterol Sulfate [Ventolin Hfa] 2 puff IH Q6H PRN 07/13/18 [History] Furosemide [Lasix] 20 mg PO DAILY 07/13/18 [History] Loratadine [Claritin] 10 mg PO DAILY #30 tablet 07/14/18 [Rx] Saline Nasal [place] [[place] Nasal [place]] 2 spray NS Q2H PRN #1 bottle 07/14/18 [Rx] Guaifenesin [Mucus Relief] 400 mg PO Q4H 07/21/18 [History] Levofloxacin [Levaquin] 750 mg PO DAILY 07/21/18 [History] Allergy/AdvReac Type Severity Reaction Status Date / Time No Known Allergies Allergy Verified 07/12/18 21:32 - Meds/Allergy Pre-op Review Medications Reviewed: Yes Allergies Reviewed: Yes Beta Blockers on Current Med List: No Anesthesia Results - Labs 07/22/18 05:46 07/22/18 05:46 Laboratory Tests 07/22/18 07:43 Serum , Qual Negative - Imaging EKG: report reviewed (07/12/2018 Sinus tachycardia RSR' in V1 or V2, right VCD or RVH Nonspecific T abnrm, anterolateral leads Borderline prolonged QT interval) Anesthesia Exam Vital Signs/O2 Sat/Glucose, Most Recent Temp Pulse Resp BP Pulse Ox 97.8 F 80 18 123/73 98 07/22/18 10:19 07/22/18 10:19 07/22/18 10:19 07/22/18 10:19 07/22/18 10:19 Blood Glucose* 86 Height: 5'6''/1.68m Weight: 298 lbs/135.4 kg NPO (# of Hours): 8 Pain Scale: 0 Pain Scale Used: Numeric (1 - 10) (0) - HEENT Pupil (Motor): EOMI Mallampati: II Teeth: Edentulous Oral Opening: Greater than 3 - [employer] LOC: Oriented [employer] Motor: Normal RUE, Normal LUE, Normal RLE, Normal LLE, Normal Face [employer] Sensory: Normal: RUE, LUE, RLE, LLE, Face - Cardiac Rhythm: Regular Murmur: None - Pulmonary Breath Sounds: bilateral Clear (decreased BS) Respiratory Effort: Symmetrical Anesthesia Assess/Plan ASA Score: 3 Level of consciousness: Cooperative, Oriented, Tranquil Anesthetic Plan: General Monitoring Plan: Standard Monitors Recovery Plan: PACU
[2018-07-22] MEDS ORDERED: Lidocaine -MPF 4% 5 ML AMPUL ONE (10:33)
--- NOTE | 2018-07-22 10:33 | Internal Med Progress Note ---
Hospitalist Progress Note - Encounter Date of Encounter: 07/22/18 Time of Encounter: 10:30 - Subjective Interval History: Pt denies fever or chills. She does have raspy voice. She denies SOB with walking to rest room. Denies being on hoe oxygen. Admits to smoking history and his on states lasix 20 mg PO QD for edema. - Exam Vitals: Temp Pulse Resp BP Pulse Ox 97.8 F 80 18 123/73 98 07/22/18 10:19 07/22/18 10:19 07/22/18 10:19 07/22/18 10:19 07/22/18 10:19 Exam: General appearance: Present: cooperative, A&O X 3, pleasant, no acute distress, answers questions appropriately Exam: - Head Head exam: Present: normal inspection - Eye Eye exam: Present: EOMI, normal appearance - Respiratory Respiratory exam: Present: decreased breath sounds. Absent: rales, rhonchi, wheezes - Cardiovascular Cardiovascular exam: Present: RRR. Absent: diastolic murmur, systolic murmur - GI/Abdominal GI/Abdominal exam: Present: normal bowel sounds, soft. Absent: tenderness - Extremities Exam Extremities exam: Present: warm, radial pulses palpable and symmetrical. Absent: calf tenderness, pedal edema, tenderness - Neurological Exam Neurological exam: Present: no focal deficits, strengths equal and symetr throughout. Absent: motor sensory deficit, facial droop, speech deficit - Skin Skin exam: Present: dry, normal color, warm - Assessment and Plan (1) COPD exacerbation Current Visit: No Status: Acute Assessment and Plan: Patient stated breathing treatments in the emergency room improved her symptoms. Continue Duo nebs Q 4 hours and prn. Oxygen supplementation as needed. Pulmonology saw pt in consult ad possible bronch today, 07/22/2018. (2) Morbidly obese Current Visit: No Status: Acute Assessment and Plan: Life style modification such as diet and exercise advised. (3) Mucus plugging of bronchi Current Visit: No Status: Acute Assessment and Plan: Possible mucus plugging. Seen by pulm and possible bronch today. (4) Shortness of breath Current Visit: Yes Status: Acute Assessment and Plan: Smoking cessation advised. Oxygen supplement prn. High suspension for sleep apnea. So recommending out pt sleep study. (5) Sleep-disordered breathing Current Visit: Yes Status: Acute Assessment and Plan: Recommending out pt sleep study (6) Thrush Current Visit: Yes Status: Acute Assessment and Plan: Pulmonology will further evaluate during bronchoscopy today and states pt would likely need fluconazole treatment. (7) Tobacco use Current Visit: No Status: Acute Assessment and Plan: Cessation strongly advised. DVT Prophylaxis: Heparin - Summary of Assessment and Plan Summary of Assessment and Plan: History of present illness: Dr. Krishnan Ms. Crandall is a 42 year old female Patient presented to the emergency room for shortness of breath and feeling like she has something stuck in her throat. She had similar symptoms 2 days ago in the emergency room and was found to have a mucous plug in her bronchi. Neurology evaluated her at that time and the mucous plug was removed. She has a history of COPD and tobacco use. In the emergency room patient's CBC and BMP were within normal limits. Chest x- ray showed no acute abnormalities. Emergency room discussed case with on-call pulmonology who recommended admission and will likely do bronchoscopy tomorrow. She did have white material on the posterior tongue and vocal cords that appeared to be fungal and she was given a dose of nystatin orally. She was recently admitted to the hospital for pneumonia, and discharged on antibiotics and oral steroids. Upon my evaluation, patient states that the breathing treatments seemed to have helped. She feels less short of breath, but is on nasal cannula oxygen. She does not use oxygen at home. She denies nausea, vomiting, chest pain, abdominal pain, diarrhea and constipation. She saw her PCP outpatient, and was recently started on Levaquin. She is also continuing her prednisone taper and is nearly finished. - Time Spent with Patient Total time spent is greater than 50% in coordination of care (as documented) at patient's floor/unit and/or counseling patient: less than 15 minutes Plan of Care Discussed with: patient Internal Medicine: Result - Labs CBC & Chem 7: 07/22/18 05:46 07/22/18 05:46 Labs: Short CBC 07/21/18 07/22/18 Range/Units 17:41 05:46 WBC 10.4 8.8 (4.3-11.1) K/mcL Hgb 12.5 11.9 (11.5-15.4) g/dL Hct 40.9 39.2 (35.3-44.9) % Plt Count 188 160 (140-400) K/mcL BMP 07/21/18 07/22/18 17:41 05:46 Sodium 134 L 137 Potassium 4.0 3.9 Chloride 98 102 Carbon Dioxide 30 H 28 BUN 10 8 Creatinine 0.88 0.82 Glucose 118 H 77 Calcium 9.6 9.4 - Impressions Impressions Chest X-Ray 07/21/18 17:30 IMPRESSION: Normal chest x-ray D/ / Jc Prabhakar MD / Jc Prabhakar MD Interpreting Provider: Jc Prabhakar MD Consult Discharge Plan - Plan Referrals: Katy López DO [Partnered Physician] -
[2018-07-22] MEDS ORDERED: *HR* FentaNYL (PF) 100 MCG/2 ML VIAL ONE (10:35)
[2018-07-22] MEDS ORDERED: *HR* Midazolam HCl 2 MG/2 ML VIAL ONE (10:36)
[2018-07-22] MEDS ORDERED: Ondansetron 4 MG/2 ML VIAL ONE (10:37)
[2018-07-22] MEDS ORDERED: Dexamethasone 4 MG/ML VIAL ONE (10:38)
[2018-07-22] MEDS ORDERED: Lidocaine Viscous Oral Soln 15 ML SOLUTION ONE (10:44)
[2018-07-22] MEDS: Methadone Oral Concentrate 50 MG/5 ML UDC PO SCH (12:20)
--- NOTE | 2018-07-22 12:34 | Anesthesia Evaluation Post Op ---
Date of Encounter: 07/22/18 Time of Encounter: 12:00 - Vital Signs Vital Signs: Vital Signs/O2 Sat, Most Current Temp Pulse Resp BP Pulse Ox 98.3 F 78 16 112/73 100 07/22/18 12:26 07/22/18 12:26 07/22/18 12:26 07/22/18 12:07/22/18 12:26 - Lungs Lungs: Clear Ascult./Percussion - Airway Airway: Non-obstructed - Cardiovascular Regular Rate - Mental Status Mental Status: Alert & Oriented, Answers Appropriately - Pain Pain Scale: 0 Pain Scale used: Numeric (1 - 10) - Nausea Vomiting Nausea Vomiting: Not Present - Hydration Hydration: Ice chips, Has not voided - Discharge PostOp Status: Transfer Patient to floor
--- NOTE | 2018-07-22 14:22 | Electrocardiograph Report ---
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
[2018-07-22 15:10] LABS: Appearance of Body Fluid Cloudy (Clear); Volume of Body Fluid 8 mL
[2018-07-22] MEDS: Albuterol 2.5 MG/3 ML NEBULIZER IH SCH ×2 (16:26→19:56)
[2018-07-22] MEDS ORDERED: cefTRIAXone 2,000 MG in Water for inj. (sterile) 20 ML 20 ML IVP SCH (17:00)
[2018-07-22] MEDS: MethylPREDNISolone 40 MG/ML VIAL IVP SCH (17:25)
[2018-07-22] MEDS: *HR* Heparin 5,000 UNIT/ML VIAL SQ SCH (17:27)
[2018-07-23] MEDS: Albuterol 2.5 MG/3 ML NEBULIZER IH SCH ×3 (00:14→07:39)
[2018-07-23] MEDS: MethylPREDNISolone 40 MG/ML VIAL IVP SCH ×2 (00:14→08:47)
[2018-07-23] MEDS: *HR* Heparin 5,000 UNIT/ML VIAL SQ SCH (05:24)
--- NOTE | 2018-07-23 06:44 | Pulmonology Progress Note ---
Date of Encounter: 07/23/18 Time of Encounter: 06:44 Assessment and Plan (1) Foreign body sensation in throat Current Visit: Yes Status: Acute Status post bronchoscopy yesterday with evidence of the thick mucus plugging below the level of the vocal cords and the subglottic space the surrounding mucosa was erythematous there was a whitish plaque adherent to the wall with the non-erythematous vesicles that were appreciated. Overall etiology of this re donny unclear I did discuss the case with the ear nose and throat surgeon Dr. Sotomayor and he is unclear based upon images that have been taken as well. Was able to take a micral brushings from that area as well as washings in the BAL from her low airways which were otherwise notable for acute on chronic inflammation but no bronchial airway abnormalities outside of friable mucosa and erythema. Unfortunately bronchoscopy was difficult based upon recurrent bronchospasm requiring frequent removal of the bronchoscope. Plan for this will be surgical biopsy with ENT if bronchoscopy results are nond iagnostic At this point it that unclear if this is infectious or inflammatory process that continues to develop thick mucoid impaction in the subglottic space. Malignancy is felt to be unlikely but not fully excluded at this point I suspect chronic obstructive airways disease likely a combination of asthma and COPD given her long-standing smoking history this is acutely exacerbated Recs: -I will follow-up on culture and cytology. Results show gram-positive rods.- Recommend a 7 day course of antibiotics she is currently on ceftriaxone suspect she would benefit from 7 days of Augmentin at time of discharge -No clear evidence of thrush on examination and for my standpoint until results are back okay to stop nystatin -She had very dry oropharynx and given then desiccated appearance of mucoid secretions I recommend stopping ipratropium and using albuterol scheduled every 6 hours every 1 hour as needed. At the time of discharge patient will need to be given a prescription for nebulized albuterol is currently she is using duo nebs -Symbicort 160/4.5 2 puffs twice a day patient should be given education to respiratory therapy with a spacer and she should be discharged with this medi cation -She will need outpatient follow-up in ENT clinic in one week at the time of mike wharton with Dr Sotomayor -Follow-up pulmonary clinic 1-2 weeks at time of discharge -Smoking and cessation counseling given also counseled the patient against continued abuse of narcotics recommend formal social media specialist consult -High suspicion for sleep-disordered breathing she will need outpatient polysomnogram -Weight loss encouraged Pulmonary will sign off please call with any questions (2) Thrush Current Visit: Yes Status: Acute (3) COPD exacerbation Current Visit: No Status: Acute (4) Drug use disorder Current Visit: No Status: Acute (5) Morbidly obese Current Visit: No Status: Acute (6) Sleep-disordered breathing Current Visit: Yes Status: Acute (7) Tobacco use Current Visit: No Status: Acute Subjective Principal diagnosis: Chocking Sensation Interval history: No acute events overnight status post bronchoscopy without untoward effect. Hoarseness is actually a little better today. She says she no longer feels like she needs to cough up mucus out of her airway. Remains afebrile. Objective PUL Vital signs: Last Vital Signs Temp 98.3 F 07/23/18 03:46 Pulse 75 07/23/18 03:46 Resp 16 07/23/18 03:46 BP 110/67 07/23/18 04:20 Pulse Ox 94 07/23/18 03:46 General appearance: no acute distress Eyes: nonicteric ENT: oropharynx dry, other (No stridor she does have a hoarse voice) Neck: supple Effort: normal Auscultation: bilateral: clear Cardiovascular: regular rate and rhythm Gastrointestinal: normoactive bowel sounds Integumentary: normal Extremities: no cyanosis Musculoskeletal: no deformities normal mental status, non-focal exam mood appropriate Results - Laboratory Findings CBC and BMP: 07/22/18 05:46 07/22/18 05:46 Abnormal lab findings: Abnormal lab results MCHC 30.4 g/dL (31.6-35.5) L 07/22/18 05:46 RDW 14.9 % (11.5-14.5) H 07/22/18 05:46 Fluid Appearance Cloudy (Clear) A 07/22/18 11:00 - Microbiology Findings Microbiology Findings: Microbiology, Last 48 Hours 07/22/18 11:00 Respiratory Culture - Preliminary Bronchial Washings 07/22/18 11:00 Respiratory Culture - Preliminary Right Middle Lobe Lung 07/22/18 11:00 Respiratory Culture - Preliminary Bronchial Washings 07/22/18 11:00 Respiratory Culture - Preliminary Bronchial Brushings - Clinical Findings Intake & Output: Intake & Output 07/22/18 07/22/18 07/23/18 15:59 23:59 07:59 Intake Total 360 / 360 200 / 200 Output Total 200 / 200 800 / 800 800 / 800 Balance -200 / -200 -440 / -440 -600 / -600 Weight 136.3 kg Consult Discharge Plan - Plan Referrals: Katy López DO [Partnered Physician] -
[2018-07-23 07:16] VITALS: BP 115/75
[2018-07-23] MEDS: Nystatin SUSP 5 ML UD.LIQ PO SCH (08:47)
--- NOTE | 2018-07-23 09:15 | Discharge Summary ---
- NOTES TO OUTPATIENT PROVIDER Notes to Outpatient Provider: PCP in 5 to 7 days Orders not resulted at time of discharge: Pending orders 07/22/18 07:43 JACKELIN IgG GARY rflx IFA Routine Immunoglobulin E Routine MPO/PR3 (ANCA) Antibodies Routine 07/22/18 11:00 AFB Culture, Respiratory [TB] Routine AFB Culture, Respiratory [TB] Routine AFB Culture, Respiratory [TB] Routine Culture,Respiratory [RM] Routine Culture,Respiratory [RM] Routine Culture,Respiratory [RM] Routine Culture,Respiratory [RM] Routine Fungal Culture [MYC] Routine Fungal Culture [MYC] Routine Fungal Culture [MYC] Routine Herpes Simplex PCR Body Fl Routine Legionella Culture [RM] Routine Resp.Virus Panel,Body Fl Routine Resp.Virus Panel,Body Fl Routine Resp.Virus Panel,Body Fl Routine 07/22/18 11:31 Cytology [PTH] Routine OUT PT SLEEP STUDY. DX: sleep apnea. send results to PCP Date of Encounter: 07/23/18 Time of Encounter: 09:12 - Discharge Diagnosis (1) COPD exacerbation Priority: Primary Status: Acute Assessment and Plan: Patient stated breathing treatments in the emergency room improved her symptoms. Was on Duonebs Q 4 hours and prn. Oxygen supplementation as needed. Pulmonology saw pt in consult and s/p bronch 07/22/2018 which resulted in removal of thick mucus plug. (2) Mucus plugging of bronchi Priority: Primary Status: Acute Assessment and Plan: Seen by pulm and s/p bronchoscopy 07/22/2018. Pt states SOB resolved once mucus plug was removed. Pulmonology recommending 7 day course of augmentin, recommends stopping ipratropium and using albuterol scheduled every 6 hours every 1 hour as needed, and Symbicort 160/4.5 2 puffs twice a day. Will place on prednisone taper at discharge. (3) Morbidly obese Priority: Secondary Status: Acute Assessment and Plan: Life style modification such as diet and exercise advised. (4) Shortness of breath Priority: Primary Status: Acute Assessment and Plan: Smoking cessation advised. P went outside to smoke during hospital stay. Oxygen supplement prn was ordered. High suspension for sleep apnea, so recommending out pt sleep study. Pt states SOB resolved once mucus plug was removed. Oxygen sat at rest 98% on RA and was 92-94% with activity on RA and does not qualify for home oxygen. (5) Sleep-disordered breathing Priority: Secondary Status: Acute Assessment and Plan: Recommending out pt sleep study (6) Thrush Priority: Secondary Status: Acute Assessment and Plan: Per pulmonology there was no evidence of thrush during bronchoscopy and no need for fluconazole treatment at this time. (7) Tobacco use Priority: Secondary Status: Acute Assessment and Plan: Cessation strongly advised. Hospital course: History of present illness: Dr. Krishnan Ms. Crandall is a 42 year old female Patient presented to the emergency room for shortness of breath and feeling like she has something stuck in her throat. She had similar symptoms 2 days ago in the emergency room and was found to have a mucous plug in her bronchi. Neurology evaluated her at that time and the mucous plug was removed. She has a history of COPD and tobacco use. In the emergency room patient's CBC and BMP were within normal limits. Chest x- ray showed no acute abnormalities. Emergency room discussed case with on-call pulmonology who recommended admission and will likely do bronchoscopy tomorrow. She did have white material on the posterior tongue and vocal cords that appeared to be fungal and she was given a dose of nystatin orally. She was recently admitted to the hospital for pneumonia, and discharged on antibiotics and oral steroids. Upon my evaluation, patient states that the breathing treatments seemed to have helped. She feels less short of breath, but is on nasal cannula oxygen. She does not use oxygen at home. She denies nausea, vomiting, chest pain, abdominal pain, diarrhea and constipation. She saw her PCP outpatient, and was recently started on Levaquin. She is also continuing her prednisone taper and is nearly finished. Time spent discussing smoking cessation with patient: 3 to 10 minutes - Time Spent with Patient Total time spent providing and/or coordinating discharge services: Less than 30 minutes - Discharge Medications Home Medications: Furosemide [Lasix] 20 mg PO DAILY 07/13/18 [History] Loratadine [Claritin] 10 mg PO DAILY #30 tablet 07/14/18 [Rx] Saline Nasal [place] [[place] Nasal [place]] 2 spray NS Q2H PRN #1 bottle 07/14/18 [Rx] Guaifenesin [Mucus Relief] 400 mg PO Q4H 07/21/18 [History] Albuterol Neb [Proventil Neb] 2.5 mg IH Q6H 30 Days #30 inhsol 12/29/18 [Rx] Albuterol Sulfate [Ventolin Hfa] 2 puff IH Q1H PRN 30 Days hfa.aer.ad 07/23/18 [Rx] Amoxicillin/Clavulanate [Augmentin] 500 mg PO BIDWM 7 Days #14 tablet 07/23/18 [Rx] Budesonide/Formoterol 160/4.5 [Symbicort 160/4.5] 2 puff IH BIDR 30 Days #1 inh 07/23/18 [Rx] Methadone 70 mg PO DAILY 1 Days #7 tablet 07/23/18 [Rx] PredniSONE [Deltasone] 20 mg PO QDPC 7 Days #21 tablet 07/23/18 [Rx] Allergies/Adverse Reactions: Allergy/AdvReac Type Severity Reaction Status Date / Time No Known Allergies Allergy Verified 07/12/18 21:32 Date of admission: 07/21/18 19:41 Primary care physician: PCP NONE Consults: 07/21/18 18:21 Consult to Pulmonology [CONS] Stat Consulting Provider: [facility] Reason for Consult: foreign body sensation, possible bronch Time Notified: 18:21 Call Completed: Yes 07/22/18 00:43 Consult to Nurse Navigator [CONS] Routine Comment: Discharging clinician: Fozia Peraza Anticipated date of discharge: 07/23/18 - Constitutional Vitals: Temp Pulse Resp BP Pulse Ox 97.7 F 65 16 115/75 99 07/23/18 06:44 07/23/18 06:44 07/23/18 07:39 07/23/18 06:44 07/23/18 07:39 General appearance: Present: cooperative, A&O X 3, pleasant, no acute distress, answers questions appropriately Exam: . - Head Head exam: Present: atraumatic, normocephalic - Eye Eye exam: Present: PERRL, conjuntiva pink, sclera anicteric Pupils: Present: PERRL - Neck Neck exam general surgery: Present: supple, trachea midline. Absent: lymphadenopathy - Respiratory Respiratory exam: Present: CTAB. Absent: accessory muscle use, rales, rhonchi, wheezes - Cardiovascular Cardiovascular exam: Present: RRR, +S1, +S2. Absent: diastolic murmur, gallop, rubs, systolic murmur - GI/Abdominal GI/Abdominal exam: Present: normal bowel sounds, soft, no peritoneal signs. Absent: distended, tenderness - Extremities Exam Extremities exam: Present: warm, radial pulses palpable and symmetrical. Absen t: calf tenderness, cyanotic, pedal edema - Neurological Exam Neurological exam: Present: CN II-XII intact, oriented X3, no focal deficits. Absent: pronater drift, facial droop, speech deficit - Skin Skin exam: Present: dry, intact - Patient Status Disposition: Home, Self-Care Condition: Good Overall status at discharge: patient is back to baseline - Discharge Instructions Follow Up With: Katy López DO [Partnered Physician] - - Diet and Activity Activity: increase activity as tolerated Diet: diabetic diet, low fat, low cholesterol, low salt diet
[2018-07-23] MEDS: Methadone Oral Concentrate 50 MG/5 ML UDC PO SCH (09:33)
[2018-07-23] MEDS ORDERED: Budesonide/Formoterol 160/4.5 1 PUFF INH IH SCH (10:00)
[2018-07-25 04:34] LABS: Influenza A PCR Body Fluid NOT DETECTED; Influenza B PCR Body Fluid NOT DETECTED; RVP Body Fluid Source BAL RML; RVP Body Fluid Source NASOPHARYNGEAL; RVP Body Fluid Source TRACHEAL WASH
[2018-07-25 05:56] LABS: HSV Source BAL RML
[2018-07-25 08:59] LABS: ANA IgG by ELISA NONE DETECTED (None Detected); Myeloperoxidase Ab 0 AU/mL (0-19); Serine Protease-3 Antibody 0 AU/mL (0-19)
[2018-07-27 09:42] LABS: Immunoglobulin E 308 kU/L (<=214)
[2018-07-27 09:44] LABS: RSV PCR Body Fluid NOT DETECTED
== END 2018-07-23 10:09 | disposition home or self-care (01) ==
LOC: EMEROOARM 17:23 → 3ANU 17:23
PROVIDERS: ADMIT Family Medicine; ATTEND Family Medicine

== ENCOUNTER 2021-06-19 12:40 | Observation (INO) ==
[2021-06-19] MEDS ORDERED: Isovue-370 500 ML BOTTLE IVP ONE (12:56)
[2021-06-19] MEDS ORDERED: *HR* HYDROmorphone (PF) 1 MG/ML SYRINGE IVP ONE (12:58)
[2021-06-19] MEDS ORDERED: Ondansetron 4 MG/2 ML VIAL IVP ONE (12:58)
[2021-06-19 13:14] LABS: Basophils % 0.3 %; Eosinophils % 0.3 %; Hemoglobin 13.2 g/dL (11.5-15.4); Immature Granulocytes % 0.8 % (0-4); Lymphocytes % 6.2 %; Mean Corpuscular HGB Conc 30.7 g/dL (31.6-35.5); Mean Corpuscular Hemoglobin 29.3 pg (28.0-33.3); Mean Corpuscular Volume 95.3 fL (83.0-100.0); Mean Platelet Volume 10.3 fL (9.4-12.4); Monocytes % 6.8 %; Neutrophils # 13.7 K/mcL (1.6-8.9); Platelet Count 169 K/mcL (140-400); Red Blood Count 4.51 M/mcL (3.82-4.97); Segmented Neutrophils % 85.6 %
[2021-06-19 13:15] LABS: Basophils # 0.1 K/mcL (0.0-0.2); Monocytes # 1.1 K/mcL (0.0-1.3)
[2021-06-19 13:27] LABS: INR 1.1; Prothrombin Time 12.6 Seconds (9.4-12.1)
[2021-06-19 13:41] LABS: Alanine Aminotransferase 13 Units/L (7-52); Albumin/Globulin Ratio 1.1 (1.1-2.2); Alkaline Phosphatase 82 Units/L (34-104); Aspartate Amino Transferase 18 Units/L (13-39); BUN/Creatinine Ratio 10 (6-26); Bilirubin,Direct 0.1 mg/dL (0.0-0.2); Bilirubin,Indirect 0.5 mg/dL (0.0-1.0); Bilirubin,Total 0.6 mg/dL (0.3-1.0); Blood Urea Nitrogen 9 mg/dL (6-20); Calcium 8.9 mg/dL (8.6-10.3); Carbon Dioxide 28 mEq/L (23-29); Chloride 99 mEq/L (98-107); Globulin 3.6 g/dL (2.4-3.5); Glucose 98 mg/dL (70-105); Lipase 7 Units/L (11-82); Magnesium 1.5 mg/dL (1.6-2.6); Osmolality,Calculated 279 (280-300); Potassium 4.1 mEq/L (3.5-5.1); Sodium 135 mEq/L (136-145); Total Protein 7.6 g/dL (6.4-8.9); Troponin I < 0.03 ng/mL (< 0.04); eGFR For African Americans > 60 (> 60); eGFR For Non-African Americans > 60 (> 60)
[2021-06-19 14:48] LABS: Influenza A PCR Negative (Negative); Influenza B PCR Negative (Negative); Resp. Syncytial Virus PCR Negative (Negative)
[2021-06-19 14:49] LABS: SARS-CoV-2 by PCR (In House) Negative (Negative)
[2021-06-19] MEDS ORDERED: Ampicillin/Sulbactam 3,000 MG in 0.9 % Sodium Chloride Mini Bag 100 ML IVPB ONE (15:38)
[2021-06-19] MEDS ORDERED: Albuterol 2.5 MG/3 ML NEBULIZER IH ONE (16:04)
[2021-06-19] MEDS ORDERED: methylPREDNISolone 125 MG/2 ML VIAL IVP ONE (16:05)
[2021-06-19] MEDS ORDERED: Ondansetron 4 MG/2 ML VIAL IVP PRN (16:40)
[2021-06-19] MEDS ORDERED: Acetaminophen 325 MG TABLET PO PRN (16:40)
[2021-06-19] MEDS ORDERED: Ibuprofen 400 MG TABLET PO PRN (16:40)
[2021-06-19] MEDS ORDERED: Naloxone 0.4 MG/ML INJ IVP PRN (16:40)
[2021-06-19] MEDS ORDERED: Ipratropium/Albuterol Neb 3 ML IH PRN (16:42)
[2021-06-19] MEDS ORDERED: Azithromycin 500 MG in 0.9 % Sodium Chloride 250 ML IVPB SCH (17:00)
[2021-06-19] MEDS ORDERED: Magnesium Sulfate 1 GM/102 ML PIGGYBACK IVPB ONE (17:00)
[2021-06-19] MEDS: 0.9 % Sodium Chloride 1,000 ML IVC SCH (17:31)
[2021-06-19 18:06] LABS: Bilirubin,Urine Negative (Negative); Blood,Urine Trace (Negative); Clarity,Urine Clear (Clear); Color,Urine Colorless (Yellow); Glucose,Urine (UA) Normal (Normal); Ketones,Urine Negative (Negative); Leukocyte Esterase,Urine Negative (Negative); Nitrite,Urine Negative (Negative); Protein,Urine Trace mg/dL (Neg-Trace); RBC,Urine 0-3 per hpf (0-3); Specific Gravity,Urine > 1.030 (1.010-1.025); Squamous Epithelial Cell,Urine Few per hpf (None-Few); Urobilinogen,Urine Normal (Normal); WBC,Urine 0-3 per hpf (0-3)
[2021-06-19] MEDS: Ampicillin/Sulbactam 3,000 MG in 0.9 % Sodium Chloride Mini Bag 100 ML IVPB SCH (20:43)
[2021-06-19] MEDS: Ipratropium/Albuterol Neb 3 ML IH SCH (20:54)
[2021-06-20] MEDS: Ampicillin/Sulbactam 3,000 MG in 0.9 % Sodium Chloride Mini Bag 100 ML IVPB SCH ×3 (00:40→08:02)
[2021-06-20] MEDS ORDERED: 0.9 % Sodium Chloride 1,000 ML ONE (00:51)
[2021-06-20] MEDS: 0.9 % Sodium Chloride 1,000 ML IVC SCH (00:56)
[2021-06-20 01:25] LABS: Basophils % 0.1 %; Hematocrit 39.3 % (35.3-44.9); Hemoglobin 11.9 g/dL (11.5-15.4); Immature Granulocytes % 1.1 % (0-4); Lymphocytes # 0.9 K/mcL (0.6-4.6); Lymphocytes % 6.2 %; Mean Corpuscular HGB Conc 30.3 g/dL (31.6-35.5); Mean Corpuscular Hemoglobin 29.6 pg (28.0-33.3); Mean Corpuscular Volume 97.8 fL (83.0-100.0); Mean Platelet Volume 10.6 fL (9.4-12.4); Monocytes # 0.3 K/mcL (0.0-1.3); Monocytes % 1.6 %; Neutrophils # 13.9 K/mcL (1.6-8.9); Platelet Count 150 K/mcL (140-400); Red Blood Count 4.02 M/mcL (3.82-4.97); White Blood Count 15.2 K/mcL (4.3-11.1)
[2021-06-20 01:39] LABS: BUN/Creatinine Ratio 14 (6-26); Blood Urea Nitrogen 10 mg/dL (6-20); Calcium 8.7 mg/dL (8.6-10.3); Carbon Dioxide 28 mEq/L (23-29); Chloride 103 mEq/L (98-107); Cholesterol 150 mg/dL (< 200); Glucose 131 mg/dL (70-105); HDL Cholesterol 76 mg/dL (40-59); LDL Cholesterol,Calculated 62 mg/dL (< 100); Magnesium 2.1 mg/dL (1.6-2.6); Osmolality,Calculated 285 (280-300); Potassium 4.1 mEq/L (3.5-5.1); Sodium 137 mEq/L (136-145); Triglycerides 61 mg/dL (< 150); eGFR For African Americans > 60 (> 60); eGFR For Non-African Americans > 60 (> 60)
[2021-06-20] MEDS: Ipratropium/Albuterol Neb 3 ML IH SCH ×3 (04:41→10:57)
[2021-06-20] MEDS ORDERED: *HR* Enoxaparin 40 MG/0.4 ML SYRINGE SQ SCH (06:00)
[2021-06-20 06:38] VITALS: BP 131/83; PULSE 97; TEMP 98.3
[2021-06-20 07:31] VITALS: O2SAT 96
[2021-06-20] MEDS ORDERED: MethylPREDNISolone 40 MG/ML VIAL IVP SCH (08:00)
[2021-06-20 09:21] LABS: Amphetamine Screen,Urine Positive ng/mL (Cutoff=1000); Barbiturate Screen,Urine Negative ng/mL (Cutoff=200); Benzodiazepines Screen,Urine Negative ng/mL (Cutoff=200); Cannabinoid Screen,Urine Negative ng/mL (Cutoff = 50); Cocaine Screen,Urine Negative ng/mL (Cutoff= 300); Opiate Screen,Urine Negative ng/mL (Cutoff=300); Phencyclidine Screen,Urine Negative ng/mL (Cutoff=25)
[2021-06-20 10:39] LABS: Estimated Average Glucose 108 mg/dl; Hemoglobin A1C 5.4 %
== END 2021-06-20 11:19 | disposition home or self-care (01) ==
LOC: EMEROOARM 12:40 → 3ANU 12:40
PROVIDERS: ADMIT Internal Medicine; ATTEND Internal Medicine

== ENCOUNTER 2022-02-14 17:53 | Inpatient (IN) ==
[2022-02-14] MEDS ORDERED: Vancomycin 1,750 MG/517.5 ML IV.SOLN IVPB ONE (19:10)
[2022-02-14] MEDS ORDERED: Piperacillin/Tazobactam 3.375 GM in 0.9 % Sodium Chloride Mini Bag 100 ML IVPB ONE (19:10)
[2022-02-14 19:48] LABS: Basophils % 0.2 %; Eosinophils % 0.2 %; Hematocrit 30.7 % (35.3-44.9); Hemoglobin 9.3 g/dL (11.5-15.4); Immature Granulocytes % 0.8 % (0-4); Lymphocytes # 1.1 K/mcL (0.6-4.6); Lymphocytes % 7.2 %; Mean Corpuscular HGB Conc 30.3 g/dL (31.6-35.5); Mean Corpuscular Hemoglobin 26.6 pg (28.0-33.3); Mean Platelet Volume 10.6 fL (9.4-12.4); Monocytes # 1.1 K/mcL (0.0-1.3); Monocytes % 7.3 %; Neutrophils # 12.5 K/mcL (1.6-8.9); Platelet Count 271 K/mcL (140-400); Red Blood Count 3.49 M/mcL (3.82-4.97); Red Cell Distribution Width 15.2 % (11.5-14.5); Segmented Neutrophils % 84.3 %; White Blood Count 14.8 K/mcL (4.3-11.1)
[2022-02-14 19:55] LABS: VBG HCO3 26 mEq/L (21-27); VBG PCO2 44 mmHg (41-51); VBG PH 7.37 pH Units (7.32-7.42); VBG PO2 59 mmHg (25-50)
[2022-02-14] MEDS: 0.9 % Sodium Chloride 1,000 ML IVC SCH ×2 (19:57→21:47)
[2022-02-14 20:03] LABS: Activated Partial Thrombo Time 29.5 Seconds (26.0-36.0); INR 1.3; Prothrombin Time 14.5 Seconds (9.4-12.1)
[2022-02-14 20:13] LABS: Alanine Aminotransferase 8 Units/L (7-52); Albumin 3.3 g/dL (3.5-5.7); Alkaline Phosphatase 68 Units/L (34-104); Aspartate Amino Transferase 11 Units/L (13-39); BUN/Creatinine Ratio 10 (6-26); Bilirubin,Direct 0.1 mg/dL (0.0-0.2); Bilirubin,Indirect 0.4 mg/dL (0.0-1.0); Bilirubin,Total 0.5 mg/dL (0.3-1.0); Blood Urea Nitrogen 14 mg/dL (6-20); C-Reactive Protein 105 mg/L (Less than 10); Calcium 8.2 mg/dL (8.6-10.3); Carbon Dioxide 26 mEq/L (23-29); Chloride 101 mEq/L (98-107); Globulin 3.4 g/dL (2.4-3.5); Glucose 96 mg/dL (70-105); Lipase 11 Units/L (11-82); Magnesium 1.3 mg/dL (1.6-2.6); Osmolality,Calculated 286 (280-300); Phosphorous 2.6 mg/dL (2.7-4.5); Potassium 2.8 mEq/L (3.5-5.1); Sodium 138 mEq/L (136-145); Total Protein 6.7 g/dL (6.4-8.9); Troponin I < 0.03 ng/mL (< 0.04); eGFR For African Americans 50 (> 60); eGFR For Non-African Americans 41 (> 60)
[2022-02-14] MEDS ORDERED: Magnesium Sulfate 1 GM/102 ML PIGGYBACK IVPB ONE (21:16)
[2022-02-14 21:45] LABS: Bilirubin,Urine Negative (Negative); Blood,Urine Negative (Negative); Clarity,Urine Turbid (Clear); Color,Urine Yellow (Yellow); Glucose,Urine (UA) 30 mg/dL (Normal); Ketones,Urine Trace mg/dL (Negative); Leukocyte Esterase,Urine Negative (Negative); Mucus,Urine Many per lpf (None-Few); Nitrite,Urine Negative (Negative); PH,Urine 5.5 pH Units (5.0-8.0); Protein,Urine 70 mg/dL (Neg-Trace); RBC,Urine 0-3 per hpf (0-3); Specific Gravity,Urine > 1.030 (1.010-1.025); Squamous Epithelial Cell,Urine Few per hpf (None-Few); Urobilinogen,Urine Normal (Normal)
[2022-02-14] MEDS ORDERED: 0.9 % Sodium Chloride 1,000 ML IVC ONE (22:05)
[2022-02-14] MEDS ORDERED: Ipratropium/Albuterol Neb 3 ML IH ONE (22:50)
[2022-02-14] MEDS ORDERED: Ondansetron 4 MG/2 ML VIAL IVP PRN (23:33)
[2022-02-14] MEDS ORDERED: Melatonin 3 MG TABLET PO PRN (23:33)
[2022-02-14] MEDS ORDERED: Naloxone 0.4 MG/ML INJ IVP PRN (23:33)
[2022-02-14] MEDS ORDERED: Vancomycin (wt based) 1,000 MG VIAL IVPB SCH (23:45)
[2022-02-15 00:40] LABS: Influenza A PCR Negative (Negative); Influenza B PCR Negative (Negative); Resp. Syncytial Virus PCR Negative (Negative)
[2022-02-15 00:43] LABS: SARS-CoV-2 by PCR (In House) Positive (Negative)
[2022-02-15] MEDS ORDERED: Ipratropium/Albuterol Neb 3 ML IH PRN (01:12)
[2022-02-15] MEDS ORDERED: Potassium Chloride Elixir 20 MEQ/15 ML UDC PO ONE (01:28)
[2022-02-15] MEDS ORDERED: 0.9 % Sodium Chloride 500 ML ONE (02:31)
[2022-02-15] MEDS ORDERED: Cefepime HCl 2,000 MG in 0.9 % Sodium Chloride Mini Bag 100 ML IVPB SCH (03:00)
[2022-02-15 03:25] LABS: Mean Corpuscular Hemoglobin 25.8 pg (28.0-33.3)
[2022-02-15 03:27] LABS: Hematocrit 31.2 % (35.3-44.9); Hemoglobin 8.9 g/dL (11.5-15.4); Mean Corpuscular HGB Conc 28.5 g/dL (31.6-35.5); Mean Corpuscular Volume 90.4 fL (83.0-100.0); Mean Platelet Volume 10.8 fL (9.4-12.4); Platelet Count 282 K/mcL (140-400); Red Blood Count 3.45 M/mcL (3.82-4.97); Red Cell Distribution Width 15.4 % (11.5-14.5); White Blood Count 17.2 K/mcL (4.3-11.1)
[2022-02-15 03:34] LABS: Albumin 3.1 g/dL (3.5-5.7); Albumin/Globulin Ratio 0.9 (1.1-2.2); Bilirubin,Total 0.4 mg/dL (0.3-1.0); Calcium 7.7 mg/dL (8.6-10.3); Globulin 3.3 g/dL (2.4-3.5); Magnesium 1.5 mg/dL (1.6-2.6); Phosphorous 3.5 mg/dL (2.7-4.5); Potassium 3.1 mEq/L (3.5-5.1); Total Protein 6.4 g/dL (6.4-8.9)
[2022-02-15 03:35] LABS: INR 1.4; Prothrombin Time 15.4 Seconds (9.4-12.1)
[2022-02-15 04:19] LABS: Monocytes # 0.7 K/mcL (0.0-1.3); Neutrophils # 15.5 K/mcL (1.6-8.9)
[2022-02-15 04:20] LABS: Platelet Estimate Normal (Normal)
[2022-02-15] MEDS: *HR* Heparin 5,000 UNIT/ML VIAL SQ SCH ×3 (05:22→19:36)
[2022-02-15] MEDS ORDERED: Remdesivir 200 MG in 0.9 % Sodium Chloride 100 ML IVPB ONE (06:00)
[2022-02-15] MEDS ORDERED: Ipratropium/Albuterol Neb 3 ML IH SCH (08:00)
[2022-02-15 08:25] LABS: VBG Ionized Calcium 1.03 mmol/L (1.15-1.35)
[2022-02-15] MEDS ORDERED: Iopamidol - 370 500 ML MLS IVP ONE (09:03)
[2022-02-15] MEDS ORDERED: Ringers Solution, Lactated 1,000 ML IVC SCH (09:15)
[2022-02-15] MEDS: Vancomycin 1,250 MG/262.5 ML IV.SOLN IVPB SCH ×2 (11:22→19:31)
[2022-02-15] MEDS: Loratadine 10 MG TABLET PO SCH (11:23)
[2022-02-15] MEDS: Ipratropium 1 PUFF INHALER IH SCH ×4 (11:37→23:44)
[2022-02-15] MEDS: Piperacillin/Tazobactam 3.375 GM in 0.9 % Sodium Chloride Mini Bag 100 ML IVPB SCH ×2 (15:13→18:25)
[2022-02-15] MEDS: ALPRAZolam 0.25 MG TABLET PO PRN (16:04)
[2022-02-16] MEDS: Piperacillin/Tazobactam 3.375 GM in 0.9 % Sodium Chloride Mini Bag 100 ML IVPB SCH ×3 (01:59→18:35)
[2022-02-16 02:19] LABS: Albumin 2.8 g/dL (3.5-5.7); Albumin/Globulin Ratio 0.8 (1.1-2.2); Bilirubin,Direct 0.1 mg/dL (0.0-0.2); Bilirubin,Indirect 0.2 mg/dL (0.0-1.0); Bilirubin,Total 0.3 mg/dL (0.3-1.0); Globulin 3.3 g/dL (2.4-3.5); Total Protein 6.1 g/dL (6.4-8.9)
[2022-02-16 02:28] LABS: Iron < 10 mcg/dL (50-170); Transferrin 179 mg/dL (203-362)
[2022-02-16] MEDS: Ipratropium 1 PUFF INHALER IH SCH ×6 (03:24→23:40)
[2022-02-16] MEDS: Remdesivir 100 MG in 0.9 % Sodium Chloride 100 ML IVPB SCH (04:52)
[2022-02-16] MEDS: *HR* Heparin 5,000 UNIT/ML VIAL SQ SCH ×3 (04:52→22:06)
[2022-02-16] MEDS: Loratadine 10 MG TABLET PO SCH (07:48)
[2022-02-16 08:23] LABS: Hematocrit 26.3 % (35.3-44.9); Hemoglobin 7.8 g/dL (11.5-15.4); Mean Corpuscular HGB Conc 29.7 g/dL (31.6-35.5); Mean Corpuscular Volume 87.7 fL (83.0-100.0); Mean Platelet Volume 10.9 fL (9.4-12.4); Platelet Count 258 K/mcL (140-400); Red Cell Distribution Width 15.9 % (11.5-14.5); White Blood Count 15.7 K/mcL (4.3-11.1)
[2022-02-16 08:38] LABS: Lymphocytes # 0.5 K/mcL (0.6-4.6); Monocytes # 0.3 K/mcL (0.0-1.3); Neutrophils # 14.9 K/mcL (1.6-8.9); Platelet Estimate Normal (Normal)
[2022-02-16 08:42] LABS: BUN/Creatinine Ratio 25 (6-26); Blood Urea Nitrogen 15 mg/dL (6-20); Calcium 8.1 mg/dL (8.6-10.3); Carbon Dioxide 28 mEq/L (23-29); Chloride 101 mEq/L (98-107); Glucose 99 mg/dL (70-105); Magnesium 1.7 mg/dL (1.6-2.6); Osmolality,Calculated 279 (280-300); Phosphorous 2.4 mg/dL (2.7-4.5); Potassium 3.4 mEq/L (3.5-5.1); Sodium 134 mEq/L (136-145); eGFR For African Americans > 60 (> 60); eGFR For Non-African Americans > 60 (> 60)
[2022-02-16] MEDS: Vancomycin 1,500 MG/265 ML IV.SOLN IVPB SCH ×2 (09:57→22:07)
[2022-02-16] MEDS: ALPRAZolam 0.25 MG TABLET PO PRN (10:02)
[2022-02-17] MEDS: Piperacillin/Tazobactam 3.375 GM in 0.9 % Sodium Chloride Mini Bag 100 ML IVPB SCH ×2 (02:03→09:44)
[2022-02-17 02:22] LABS: Hematocrit 23.9 % (35.3-44.9); Hemoglobin 7.2 g/dL (11.5-15.4); Mean Corpuscular HGB Conc 30.1 g/dL (31.6-35.5); Mean Corpuscular Hemoglobin 26.1 pg (28.0-33.3); Mean Corpuscular Volume 86.6 fL (83.0-100.0); Mean Platelet Volume 11.3 fL (9.4-12.4); Platelet Count 229 K/mcL (140-400); Red Blood Count 2.76 M/mcL (3.82-4.97); Red Cell Distribution Width 15.8 % (11.5-14.5); White Blood Count 11.2 K/mcL (4.3-11.1)
[2022-02-17 02:56] LABS: Estimated Average Glucose 105 mg/dl; Hemoglobin A1C 5.3 %
[2022-02-17 03:21] LABS: Albumin 2.6 g/dL (3.5-5.7); Albumin/Globulin Ratio 0.8 (1.1-2.2); Bilirubin,Indirect 0.3 mg/dL (0.0-1.0); Bilirubin,Total 0.3 mg/dL (0.3-1.0); Globulin 3.3 g/dL (2.4-3.5); Total Protein 5.9 g/dL (6.4-8.9)
[2022-02-17 03:22] LABS: BUN/Creatinine Ratio 25 (6-26); Blood Urea Nitrogen 14 mg/dL (6-20); Calcium 8.1 mg/dL (8.6-10.3); Carbon Dioxide 28 mEq/L (23-29); Chloride 101 mEq/L (98-107); Glucose 96 mg/dL (70-105); Magnesium 1.8 mg/dL (1.6-2.6); Osmolality,Calculated 282 (280-300); Phosphorous 2.4 mg/dL (2.7-4.5); Potassium 3.6 mEq/L (3.5-5.1); Sodium 136 mEq/L (136-145); eGFR For African Americans > 60 (> 60); eGFR For Non-African Americans > 60 (> 60)
[2022-02-17] MEDS: Ipratropium 1 PUFF INHALER IH SCH ×3 (03:23→11:48)
[2022-02-17 03:48] LABS: Eosinophils # 0.2 K/mcL (0.0-0.6); Lymphocytes # 1.6 K/mcL (0.6-4.6); Monocytes # 0.7 K/mcL (0.0-1.3); Neutrophils # 8.7 K/mcL (1.6-8.9)
[2022-02-17 03:49] LABS: Platelet Estimate Normal (Normal)
[2022-02-17] MEDS: *HR* Heparin 5,000 UNIT/ML VIAL SQ SCH (05:14)
[2022-02-17] MEDS: Remdesivir 100 MG in 0.9 % Sodium Chloride 100 ML IVPB SCH (05:19)
[2022-02-17] MEDS ORDERED: Doxycycline 100 MG CAPSULE PO SCH (09:00)
[2022-02-17] MEDS: Loratadine 10 MG TABLET PO SCH (09:45)
[2022-02-17 10:04] VITALS: BP 121/74; PULSE 78; TEMP 98.5; O2SAT 93
== END 2022-02-17 01:30 | disposition left against medical advice (07) | DRG 720 ==
LOC: 3NENU 17:53 → EMEROOARM 17:53 → SUATTDRO 23:19 → 3NENU 02-15 02:23
PROVIDERS: ADMIT Internal Medicine; ATTEND Internal Medicine